=== PATIENT | female | born 1990 | race Hispanic/Latino ===

== ENCOUNTER 2020-10-05 09:48 | Emergency (ER) | payer OTHER ==
--- OUTSIDE RECORDS SUMMARY | 2020-10-05 09:50 | XMS REPORT | Continuity of Care Document ---
:1990 Author Organization [facility] t Address [address] [place] [address] Care Team Providers Name Role Phone Boom SANDOVAL, T Attending Clinician Unavailable Only, Test Attending Clinician Unavailable Doctor Unassigned, Name Attending Clinician Unavailable Problems This patient has no known problems. Allergies, Adverse Reactions, Alerts This patient has no known allergies or adverse reactions. Medications This patient has no known medications. Procedures This patient has no known procedures. Encounters Start End Encounter Admission Attending Care Care Encounter Source Date/Time Date/Time Type Type Clinicians Facility Department ID 2020-04-28 2020-04-28 Letter SAMUEL Nur [id number] 00:00:00 00:00:00 (Out) Dari GOMEZ [id number] [place] [id number] 2020-04-24 2020-04-24 Laboratory Only, [facility] [id number] 11:31:33 11:46:33 Only Test Curry [id number] [place] [id number] 353 2020-04-24 2020-04-24 Orders Doctor BAKER [id number] 00:00:00 00:00:00 Only UnassignedPATRICIA [id number] [place] [id number] Results This patient has no known results.
[2020-10-05 12:13] LABS: Urine Blood Negative (Negative); Urine Glucose Negative (Negative); Urine Protein Negative (Negative)
--- NOTE | 2020-10-05 13:13 | ER ---
Nurse's Notes [facility] Name: Nazanin Trammell Age: 30 yrs Sex: Female : 1990 Arrival Date: 10/05/2020 Time: 09:50 Bed 19 Private MD: Diagnosis: Infectious mononucleosis, unspecified without complication Presentation: 10/05 09:54 Chief complaint: Patient states: fever up to 102.0 * F last night and sore throat. aa5 Denies cough/congestion. 09:54 Coronavirus screen: fever, sore throat, Client presents with at least one sign or aa5 symptom that may indicate coronavirus-19. Standard/surgical mask placed on the client. Provider contacted for isolation considerations. Ebola Screen: Patient negative for fever greater than or equal to 101.5 degrees Fahrenheit, and additional compatible Ebola Virus Disease symptoms. Initial Sepsis Screen: Does the patient meet any 2 criteria? No. Patient's initial sepsis screen is negative. Does the patient have a suspected source of infection? No. Patient's initial sepsis screen is negative. Risk Assessment: Do you want to hurt yourself or someone else? Patient reports no desire to harm self or others. Onset of symptoms was September 2020. 09:54 Method Of Arrival: Ambulatory aa5 09:54 Acuity: ELKIN 4 aa5 Historical: - Allergies: 09:55 No Known Allergies; aa5 - Home Meds: 09:55 None [Active]; aa5 - PMHx: 09:55 None; aa5 - PSHx: 09:55 section; aa5 - Immunization history:: Adult Immunizations up to date. - Social history:: Smoking status: Patient denies any tobacco usage or history of. Screenin:55 Abuse screen: Denies threats or abuse. Nutritional screening: No deficits noted. rb3 Tuberculosis screening: No symptoms or risk factors identified. Fall Risk None identified. Assessment: 09:55 General: Appears in no apparent distress. Behavior is calm, cooperative, Reports fever rb3 for. Pain: Complains of pain in throat Quality of pain is described as sore. Neuro: Level of Consciousness is awake, alert, obeys commands, Oriented to person, place, time, situation. Cardiovascular: Patient's skin is warm and dry. Respiratory: Airway is patent Respiratory effort is even, unlabored, Respiratory pattern is regular, symmetrical. GI: No signs and/or symptoms were reported involving the gastrointestinal system. : No signs and/or symptoms were reported regarding the genitourinary system. EENT: Reports sore throat. 11:00 Reassessment: Patient appears in no apparent distress at this time. No changes from rb3 previously documented assessment. Pt is talking on her phone. 12:00 Reassessment: Patient appears in no apparent distress at this time. Patient and/or rb3 family updated on plan of care and expected duration. Pain level reassessed. Patient is alert, oriented x 3, equal unlabored respirations, skin warm/dry/pink. 13:00 Reassessment: Patient appears in no apparent distress at this time. No changes from rb3 previously documented assessment. 13:40 Reassessment: Patient appears in no apparent distress at this time. Patient and/or rb3 family updated on plan of care and expected duration. Pain level reassessed. Patient is alert, oriented x 3, equal unlabored respirations, skin warm/dry/pink. Vital Signs: 09:54 BP 142 / 86; Pulse 91; Resp 18 S; Temp 98.6(O); Pulse Ox 100% on R/A; aa5 11:00 BP 115 / 70; Pulse 80; Resp 16; Pulse Ox 99% ; rb3 12:00 BP 116 / 81; Pulse 93; Resp 17; Pulse Ox 99% ; rb3 13:00 BP 110 / 66; Pulse 77; Resp 17; Pulse Ox 100% ; rb3 ED Course: 09:50 Patient arrived in ED. as 09:52 Nicole Milan FNP-C [facility] kb 09:52 Eagle Dillon MD is Attending Physician. kb 09:54 Arm band placed on Patient placed in an exam room, on a stretcher. aa5 09:55 Patient has correct armband on for positive identification. Bed in low position. Call rb3 light in reach. Side rails up X 1. Pulse ox on. NIBP on. Warm blanket given. 10:05 Triage completed. aa5 10:07 Marycarmen Carrillo, RN is Primary Nurse. rb3 10:13 Strep Sent. rb3 10:13 Flu Sent. rb3 12:18 [place] Screen Profile Sent. rb3 13:09 Throat Culture Sent. ap3 13:41 No provider procedures requiring assistance completed. Patient did not have IV access rb3 during this emergency room visit. Administered Medications: No medications were administered Outcome: 13:12 Discharge ordered by MD. tran 13:41 Discharged to home ambulatory. rb3 13:41 Condition: stable 13:41 Discharge instructions given to patient, Instructed on discharge instructions, follow up and referral plans. medication usage, Demonstrated understanding of instructions, follow-up care, medications, Prescriptions given X 1. 13:42 Patient left the ED. rb3 Signatures: Nicole Milan, STRIP ROLLER-C STRIP ROLLER-April Baeza Audri, RN RN aa5 Tanisha Rodriguez RN RN ap3 Marycarmen Carrillo, RN RN rb3 Corrections: (The following items were deleted from the chart) 10:36 10:13 CORONAVIRUS+ drawn and sent. rb3 EDMS
--- NOTE | 2020-10-05 13:14 | EDPHYS ---
Physician Documentation [facility] Name: Nazanin Trammell Age: 30 yrs Sex: Female : 1990 Arrival Date: 10/05/2020 Time: 09:50 Bed 19 Private MD: ED Physician Eagle Dillon HPI: 10/05 12:48 This 30 yrs old Female presents to ER via Ambulatory with complaints of Fever, kb chills/body aches. 12:48 The patient or guardian reports flu symptoms, low-grade fever, myalgias, no appetite. kb Onset: The symptoms/episode began/occurred yesterday. Severity of symptoms: At their worst the symptoms were moderate, in the emergency department the symptoms are unchanged. Modifying factors: The symptoms are alleviated by nothing, the symptoms are aggravated by nothing. Associated signs and symptoms: Pertinent positives: fever, sore throat, Pertinent negatives: chest pain, diarrhea, ear ache, nausea, rhinorrhea, vomiting. The patient has not experienced similar symptoms in the past. The patient has not recently seen a physician. Pt reports fever, chills, bodyaches, decreased appetite and sore throat that started yesterday. . Historical: - Allergies: 09:55 No Known Allergies; aa5 - Home Meds: 09:55 None [Active]; aa5 - PMHx: 09:55 None; aa5 - PSHx: 09:55 section; aa5 - Immunization history:: Adult Immunizations up to date. - Social history:: Smoking status: Patient denies any tobacco usage or history of. ROS: 12:47 Respiratory: Negative for shortness of breath, cough, wheezing, and pleuritic chest kb pain. 12:47 Constitutional: Positive for body aches, chills, fatigue, fever, malaise, poor PO intake. 12:47 ENT: Positive for sore throat. 12:47 All other systems are negative. Exam: 12:47 Constitutional: This is a well developed, well nourished patient who is awake, alert, kb and in no acute distress. Head/Face: Normocephalic, atraumatic. ENT: Moist Mucous membranes Neck: Trachea midline, no thyromegaly or masses palpated, and no cervical lymphadenopathy. Supple, full range of motion without nuchal rigidity, or vertebral point tenderness. No Meningismus. Cardiovascular: Regular rate and rhythm with a normal S1 and S2. No gallops, murmurs, or rubs. No pulse deficits. Respiratory: Respirations even and unlabored. No increased work of breathing, no retractions or nasal flaring. Abdomen/GI: Soft, non-tender. No distention Skin: Warm, dry with normal turgor. Normal color. MS/ Extremity: Pulses equal, no cyanosis. Neurovascular intact. Full, normal range of motion. Neuro: Awake and alert, GCS 15, oriented to person, place, time, and situation. Moves all extremities. Normal gait. Psych: Awake, alert, with orientation to person, place and time. Behavior, mood, and affect are within normal limits. Vital Signs: 09:54 BP 142 / 86; Pulse 91; Resp 18 S; Temp 98.6(O); Pulse Ox 100% on R/A; aa5 11:00 BP 115 / 70; Pulse 80; Resp 16; Pulse Ox 99% ; rb3 12:00 BP 116 / 81; Pulse 93; Resp 17; Pulse Ox 99% ; rb3 13:00 BP 110 / 66; Pulse 77; Resp 17; Pulse Ox 100% ; rb3 MDM: 09:54 Patient medically screened. kb 12:46 Data reviewed: vital signs, nurses notes. Data interpreted: Pulse oximetry: on room air kb is 99 %. Interpretation: normal. Counseling: I had a detailed discussion with the patient and/or guardian regarding: the historical points, exam findings, and any diagnostic results supporting the discharge/admit diagnosis, lab results, the need for outpatient follow up, a family practitioner, to return to the emergency department if symptoms worsen or persist or if there are any questions or concerns that arise at home. 10/05 10:00 Order name: Flu; Complete Time: 11:18 kb 10/05 10:00 Order name: Strep; Complete Time: 11:18 kb 10/05 11:08 Order name: Throat Culture [facility] 10/05 11:29 Order name: SARS-COV-2 RT PCR; Complete Time: 11:34 [facility] 10/05 11:58 Order name: [place] Screen Profile; Complete Time: 13:08 kb 10/05 11:59 Order name: Urine Dipstick-Ancillary (obtain specimen); Complete Time: 12:18 kb 10/05 12:13 Order name: Urine Dipstick-Ancillary; Complete Time: 12:24 EDMS 10/05 12:19 Order name: Urine --Ancillary (enter results); Complete Time: 13:01 em1 Administered Medications: No medications were administered Disposition: 16:16 Co-signature as Attending Physician, Eagle Dillon MD I agree with the assessment and tw4 plan of care. Disposition Summary: 10/05/20 13:12 Discharge Ordered Location: Home kb Condition: Stable kb Diagnosis - Infectious mononucleosis, unspecified without complication kb Followup: kb - With: Emergency Department - When: As needed - Reason: Worsening of condition Followup: kb - With: Private Physician - When: 2 - 3 days - Reason: Recheck today's complaints, Continuance of care, Re-evaluation by your physician Discharge Instructions: - Discharge Summary Sheet kb - Infectious Mononucleosis kb - Viral Illness, Adult kb Forms: - Medication Reconciliation Form kb - Work release form kb - Thank You Letter kb - Antibiotic Education kb - Prescription Opioid Use kb Prescriptions: - ondansetron 4 mg Oral tablet,disintegrating - place 1 tablet by TRANSLINGUAL route every 6 hours As needed; 15 tablet; kb Refills: 0, Product Selection Permitted Signatures: Dispatcher [employer] EDNicole Avendaño, JINNY-C REFERRAL SPECIALIST-Gillian Mcgowan, RN RN aa5 Eagle Dillon MD MD tw4 Corrections: (The following items were deleted from the chart) 10:36 10:00 CORONAVIRUS+BRZ ordered. EDCT EDMS
[2020-10-05 13:49] VITALS: TEMP 98.6
[2020-10-05 13:55] VITALS: BP 110/66; O2SAT 100
== END 2020-10-05 13:42 | disposition home or self-care (01) ==
LOC: ER 09:48
DX: B27.90 Infectious mononucleosis, unspecified without complication (principal); Z20.822 Contact with and (suspected) exposure to COVID-19
CPT/HCPCS: 87070; 36415; 86308; 81025; 87081; 81003; 87804 ×2; 99283; U0003

== ENCOUNTER 2020-10-24 22:22 | Emergency (ER) | payer OTHER ==
--- OUTSIDE RECORDS SUMMARY | 2020-10-24 22:25 | XMS REPORT | Continuity of Care Document ---
:1990 [address] [facility] t Address [address] [place] [address] Care Team Providers Name Role Phone Boom [...] Clinicians Facility Department ID 2020-04-28 2020-04-28 Letter SAUMEL Nur [id number] 00:00:00 00:00:00 (Out) Dari GOMEZ [id number] [facility] [id number] 2020-04-24 2020-04-24 Laboratory Only, [facility] [id number] 11:31:33 11:46:33 Only Test Curry [id number] [place] [id number] [place] [id number] 353 2020-04-24 2020-04-24 Orders Doctor BAKER [id number] 00:00:00 00:00:00 Only UnassPATRICIA ramos [id number] [place] [facility] [id number] Results This patient has no known results.
[2020-10-24 23:45] LABS: Urine Blood 3+ (Negative); Urine Glucose Negative (Negative); Urine Protein Negative (Negative); Urine Specific Gravity 1.025 (1.005-1.030)
[2020-10-25 00:03] LABS: Urine Specific Gravity/Preg 1.025 (1.005-1.030)
[2020-10-25] MEDS ORDERED: ACETAMINOPHEN 500 MG TAB ONE (00:47)
--- NOTE | 2020-10-25 00:57 | ER ---
Nurse's Notes [facility] Name: Nazanin Trammell Age: 30 yrs Sex: Female : 1990 Arrival Date: 10/24/2020 Time: 22:24 Bed 26 Private MD: Diagnosis: SARS-associated coronavirus as the cause of diseases classified elsewhere Presentation: 10/24 23:18 Chief complaint: Patient states: Sudden onset of fever and chills today around 1300. vg1 Stated temperature was 100.2. Pt did not take any medication, stated went to bed to take a nap to hopefully break the temperature. Also states headache and "almost fainted when got up from nap.". Coronavirus screen: Client denies travel out of the [place] in the last 14 days. Client presents with at least one sign or symptom that may indicate coronavirus-19. Standard/surgical mask placed on the client. Ebola Screen: Patient negative for fever greater than or equal to 101.5 degrees Fahrenheit, and additional compatible Ebola Virus Disease symptoms. Initial Sepsis Screen: Does the patient meet any 2 criteria? No. Patient's initial sepsis screen is negative. Does the patient have a suspected source of infection? No. Patient's initial sepsis screen is negative. Risk Assessment: Do you want to hurt yourself or someone else? Patient reports no desire to harm self or others. Onset of symptoms was October 24, 2020. 23:18 Method Of Arrival: Ambulatory vg1 23:18 Acuity: ELKIN 3 vg1 Triage Assessment: 23:22 General: Appears in no apparent distress. comfortable, Behavior is calm, cooperative. vg1 Pain: Complains of pain in whole body Quality of pain is described as aching. 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 - Social history:: Smoking status: Patient denies any tobacco usage or history of. Screenin:49 Abuse screen: Denies threats or abuse. Nutritional screening: No deficits noted. ap3 Tuberculosis screening: No symptoms or risk factors identified. Fall Risk None identified. Assessment: 23:48 General: Appears in no apparent distress. comfortable, Behavior is calm, cooperative, ap3 appropriate for age. General: Reports chills for fever for feeling ill for 0-12 hours. Pain: Complains of pain in head. Neuro: Level of Consciousness is awake, alert, obeys commands, Oriented to person, place, time, situation, Appropriate for age Moves all extremities. Gait is steady, Speech is normal. Cardiovascular: Capillary refill < 3 seconds Patient's skin is warm and dry. Respiratory: Airway is patent Respiratory effort is even, unlabored, Respiratory pattern is regular, symmetrical. GI: No signs and/or symptoms were reported involving the gastrointestinal system. : No signs and/or symptoms were reported regarding the genitourinary system. Vital Signs: 23:18 BP 118 / 61; Pulse 83; Resp 18; Temp 98.2(O); Pulse Ox 99% ; Weight 117.93 kg; Height 5 vg1 ft. 2 in. (157.48 cm); Pain 4/10; 10/25 00:56 BP 109 / 72; Pulse 86; Resp 17; Pulse Ox 100% on R/A; ap3 10/24 23:18 Body Mass Index 47.55 (117.93 kg, 157.48 cm) vg1 ED Course: 10/24 22:24 Patient arrived in ED. wm 23:21 Triage completed. vg1 23:22 Arm band placed on Patient placed in waiting room, Patient notified of wait time. vg1 23:24 COVID swab sent to lab. Flu and/or RSV swab sent to lab. Strep swab sent to lab. vg1 completed by [facility]. 23:29 Tanisha Rodriguez, JAIME is Primary Nurse. ap3 23:33 Hector Tidwell PA is PHCP. cp 23:33 Berto Mayes MD is Attending Physician. cp 23:49 Patient has correct armband on for positive identification. Bed in low position. Call ap3 light in reach. Side rails up X 1. Pulse ox on. NIBP on. Door closed. Noise minimized. 10/25 01:05 No provider procedures requiring assistance completed. Patient did not have IV access ap3 during this emergency room visit. Administered Medications: 00:46 Drug: Tylenol 1000 mg Route: PO; ap3 01:06 Follow up: Response: No adverse reaction ap3 Outcome: 00:57 Discharge ordered by . esequiel 01:05 Discharged to home ambulatory. ap3 01:05 Condition: good 01:05 Discharge instructions given to patient, Instructed on discharge instructions, follow up and referral plans. Demonstrated understanding of instructions, follow-up care. 01:06 Patient left the ED. ap3 Signatures: Hector Tidwell PA PA cp Prokisch, Amanda, RN RN ap3 Alena Lara RN RN 1 Pooja Cadena
--- NOTE | 2020-10-25 00:57 | EDPHYS ---
Physician Documentation [facility] Name: Nazanin Trammell Age: 30 yrs Sex: Female : 1990 Arrival Date: 10/24/2020 Time: 22:24 Bed 26 Private MD: ED Physician Berto Mayes HPI: 10/24 23:40 This 30 yrs old Female presents to ER via Ambulatory with complaints of Fever, cp Fainting. 23:40 The patient reports fever, that was measured at 100.2 degrees Fahrenheit. Onset: The cp symptoms/episode began/occurred today. Associated signs and symptoms: Pertinent positives: chills, headache, sore throat. Severity of symptoms: in the emergency department the symptoms are unchanged. 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 - Social history:: Smoking status: Patient denies any tobacco usage or history of. ROS: 23:42 Constitutional: Positive for body aches, Negative for chills, fever, poor PO intake. cp 23:42 Eyes: Negative for injury, pain, redness, and discharge. cp 23:42 ENT: Positive for sore throat, Negative for drainage from ear(s), ear pain, difficulty swallowing, difficulty handling secretions. 23:42 Cardiovascular: Negative for chest pain, palpitations. 23:42 Respiratory: Negative for cough, shortness of breath, wheezing. 23:42 Abdomen/GI: Negative for abdominal pain, nausea, vomiting, and diarrhea. 23:42 Neuro: Positive for headache, Negative for altered mental status, weakness. 23:42 All other systems are negative. Exam: 23:45 Constitutional: The patient appears in no acute distress, alert, awake, non-toxic, well cp developed, well nourished, obese. 23:45 Head/Face: Normocephalic, atraumatic. cp 23:45 Eyes: Periorbital structures: appear normal, Conjunctiva: normal, no exudate, no injection, Lids and lashes: appear normal, bilaterally. 23:45 ENT: External ear(s): are unremarkable, Ear canal(s): are normal, clear, TM's: bulging, is not appreciated, bilaterally, dullness, bilaterally, erythema, is not appreciated, bilaterally, Nose: is normal, Mouth: Lips: moist, Oral mucosa: pink and intact, moist, Posterior pharynx: Airway: no evidence of obstruction, patent, Tonsils: no enlargement, no exudate, Uvula: midline, erythema, that is mild, exudate, is not appreciated, Voice: is normal. 23:45 Neck: ROM/movement: is normal, is supple, no meningismus, no nuchal rigidity. 23:45 Chest/axilla: Inspection: normal. 23:45 Cardiovascular: Rate: normal. 23:45 Respiratory: the patient does not display signs of respiratory distress, Respirations: normal, no use of accessory muscles, no retractions, labored breathing, is not present, Breath sounds: are clear throughout, no decreased breath sounds, no stridor, no wheezing. 23:45 Abdomen/GI: Exam negative for discomfort, distension, guarding, Inspection: abdomen appears normal. 23:45 Neuro: Orientation: to person, place \T\ time. Mentation: is normal, Motor: moves all fours, strength is normal, Gait: is steady. Vital Signs: 23:18 BP 118 / 61; Pulse 83; Resp 18; Temp 98.2(O); Pulse Ox 99% ; Weight 117.93 kg; Height 5 vg1 ft. 2 in. (157.48 cm); Pain 4/10; 10/25 00:56 BP 109 / 72; Pulse 86; Resp 17; Pulse Ox 100% on R/A; ap3 10/24 23:18 Body Mass Index 47.55 (117.93 kg, 157.48 cm) vg1 MDM: 10/24 23:44 Patient medically screened. cp 10/25 00:00 Differential diagnosis: viral Infection, bacterial infection, URI, bronchitis, cp pneumonia UTI, gastroenteritis, meningitis. 00:56 Data reviewed: vital signs, nurses notes, lab test result(s). cp 00:56 Counseling: I had a detailed discussion with the patient and/or guardian regarding: the cp historical points, exam findings, and any diagnostic results supporting the discharge/admit diagnosis, lab results, to return to the emergency department if symptoms worsen or persist or if there are any questions or concerns that arise at home. ED course: VSS. Patient appears non-toxic and no signs of respiratory distress. Will discharge to home for continued monitoring. Patient instructed to quarantine 10 days. 10/24 23:24 Order name: Flu; Complete Time: 00:50 vg1 10/25 00:50 Interpretation: Reviewed. 10/24 23:24 Order name: Strep; Complete Time: 00:50 vg1 10/25 00:50 Interpretation: Reviewed. 10/24 23:45 Order name: Urine --Ancillary (enter results); Complete Time: 00:17 mw2 10/25 00:18 Interpretation: Reviewed. 10/24 23:45 Order name: Urine Dipstick-Ancillary; Complete Time: 23:48 EDIA 10/24 23:49 Interpretation: Normal except: UKET Trace; UBLD 3+. 10/24 23:27 Order name: Urine Dipstick-Ancillary (obtain specimen); Complete Time: 23:44 10/24 23:27 Order name: Urine Test (obtain specimen); Complete Time: 23:44 10/25 00:28 Order name: Throat Culture EDIA 10/25 00:50 Order name: SARS-COV-2 RT PCR; Complete Time: 00:53 EDIA 10/25 00:53 Interpretation: Results reviewed. cp Administered Medications: 00:46 Drug: Tylenol 1000 mg Route: PO; ap3 01:06 Follow up: Response: No adverse reaction ap3 Disposition: 01:18 Co-signature as Attending Physician, Berto Mayes MD. pkl Disposition Summary: 10/25/20 00:57 Discharge Ordered Location: Home cp Problem: new cp Symptoms: have improved cp Condition: Stable cp Diagnosis - SARS-associated coronavirus as the cause of diseases classified elsewhere cp Followup: cp - With: Private Physician - When: 2 - 3 days - Reason: Worsening of condition Discharge Instructions: - Discharge Summary Sheet cp - COVID-19 cp - COVID-19: What Your Test Results Mean - [facility] cp - Things to Know about the COVID-19 Pandemic - [facility] cp - 10 Things You Can Do to Manage Your COVID-19 Symptoms at Home - [facility] cp - Frequently Asked Questions About COVID-19 Vaccination - [facility] cp - COVID-19: Quarantine vs. Isolation - [facility] cp - Prevent the Spread of COVID-19 if You Are Sick - [facility] cp Forms: - Medication Reconciliation Form cp - Thank You Letter cp - Antibiotic Education cp - Prescription Opioid Use cp - Work release form mw2 Signatures: Dispatcher [employer] EDMS Berto Mayes MD MD pkl Hector Tidwell PA PA cp Prokisch, Amanda RN RN ap3 Alena Lara RN RN vg1 Corrections: (The following items were deleted from the chart) 10/24 23:39 23:25 CORONAVIRUS+.BRZ ordered. EDMS EDMS
[2020-10-25 01:24] VITALS: TEMP 98.2
[2020-10-25 01:26] VITALS: BP 109/72; O2SAT 100
== END 2020-10-25 01:06 | disposition home or self-care (01) ==
LOC: ER 22:22
DX: U07.1 COVID-19 (principal)
CPT/HCPCS: 87070; 81025; 87081; 81003; 87804 ×2; 99283; U0003

== ENCOUNTER 2020-11-01 21:35 | Emergency (ER) | payer OTHER ==
--- OUTSIDE RECORDS SUMMARY | 2020-11-01 21:38 | XMS REPORT | Continuity of Care Document ---
:1990 Author Organization [facility] t Address [address] [place] [address] Care Team Providers Name Role Phone Boom [...] ID 2020-04-28 2020-04-28 Letter SAMUEL Nur [id number] 00:00:00 00:00:00 (Out) Dari GOMEZ [id number] [facility] [id number] 2020-04-24 2020-04-24 Laboratory Only, [facility] [id number] 11:31:33 11:46:33 Only Test Curry [id number] [place] [id number] [place] [id number] 2020-04-24 2020-04-24 Orders Doctor BAKER [id number] 00:00:00 00:00:00 Only UnassPATRICIA ramos [id number] [place] [facility] [id number] Results This patient has no known results.
[2020-11-01 23:06] LABS: Urine Blood Trace-intact (Negative); Urine Glucose Negative (Negative); Urine Protein Trace (Negative); Urine Specific Gravity >=1.030 (1.005-1.030)
[2020-11-01 23:25] LABS: Barbiturates NEGATIVE (NEGATIVE); Benzodiazepines NEGATIVE (NEGATIVE); Cocaine NEGATIVE (NEGATIVE); METHAMPHETAM NEGATIVE (NEGATIVE); Methadone NEGATIVE (NEGATIVE); Opiates NEGATIVE (NEGATIVE); Phencyclidine NEGATIVE (NEGATIVE); THC Cannibis NEGATIVE (NEGATIVE)
[2020-11-01 23:29] LABS: Urine Specific Gravity/Preg >1.030 (1.005-1.030)
[2020-11-01 23:55] LABS: Absolute Lymphocytes (CBC) 0.8 K/uL (0.7-4.9); Basophils % 0.4 % (0-1.3); Hematocrit 34.9 % (36.0-45.0); Lymphocytes % 31.2 % (15.3-44.8); MPV 9.3 fL (7.6-11.3); RBC Red Blood Cell Count 5.06 M/uL (3.86-4.86)
[2020-11-02 00:02] LABS: Protime INR 1.29
[2020-11-02 00:16] LABS: ALT/SGPT 143 U/L (12-78); AST/SGOT 62 U/L (15-37); Albumin 3.5 g/dL (3.4-5.0); Alkaline Phosphatase 97 U/L (45-117); BUN Blood Urea Nitrogen 7 mg/dL (7-18); Bicarbonate 26 mmol/L (21-32); Bilirubin Direct 0.1 mg/dL (0-0.2); Bilirubin Total 0.3 mg/dL (0.2-1.0); Glucose Level 111 mg/dL (74-106); Magnesium 1.9 mg/dL (1.8-2.4); NT PRO-BNP 10 pg/mL (<125); Potassium 3.5 mmol/L (3.5-5.1); Protein, Total 7.8 g/dL (6.4-8.2); Sodium Level 142 mmol/L (136-145); Troponin (Emerg Dept Use Only) < 0.02 ng/mL (0.0-0.045)
[2020-11-02 01:31] LABS: Platelet Estimate ADEQ; White Blood Cell Scan OK (OK)
[2020-11-02 01:32] LABS: Anisocytosis 1+; Blood Morphology Comment NOTED (NOT SEEN); Hypochromasia 1+; Macrocytosis 1+; Ovalocytes 1+
--- NOTE | 2020-11-02 02:35 | ER ---
Nurse's Notes [facility] Name: Nazanin Trammell Age: 30 yrs Sex: Female : 1990 Arrival Date: 11/01/2020 Time: 21:37 Bed Waiting Private MD: Diagnosis: Other pneumonia, unspecified organism;SARS-associated coronavirus as the cause of diseases classified elsewhere Presentation: 11/01 22:27 Chief complaint: Patient states: Chest pain x 1 day. Coronavirus screen: Client denies kg travel out of the [place] in the last 14 days. At this time, unable to obtain information related to travel outside the [place] At this time, the client does not indicate any symptoms associated with coronavirus-19. Ebola Screen: Patient negative for fever greater than or equal to 101.5 degrees Fahrenheit, and additional compatible Ebola Virus Disease symptoms Patient denies exposure to infectious person. Patient denies travel to an Ebola-affected area in the 21 days before illness onset. Initial Sepsis Screen: Does the patient meet any 2 criteria? No. Patient's initial sepsis screen is negative. Does the patient have a suspected source of infection? No. Patient's initial sepsis screen is negative. Risk Assessment: Do you want to hurt yourself or someone else? Patient reports no desire to harm self or others. Onset of symptoms was December 01, 2020. 22:27 Method Of Arrival: Ambulatory kg 22:27 Acuity: ELKIN 4 kg Triage Assessment: 22:28 General: Appears in no apparent distress. Behavior is calm, cooperative, appropriate kg for age, quiet. Pain: Complains of pain in Chest pain. Cardiovascular: Reports chest pain, shortness of breath. 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 - Social history:: Smoking status: Patient denies any tobacco usage or history of. Screenin:31 Abuse screen: Denies threats or abuse. Denies injuries from another. Nutritional kg screening: No deficits noted. Tuberculosis screening: No symptoms or risk factors identified. Fall Risk None identified. Vital Signs: 22:27 BP 118 / 74; Pulse 91; Resp 18; Temp 98.2(TE); Pulse Ox 100% on R/A; Weight 124.74 kg kg (R); Height 5 ft. 2 in. (157.48 cm); Pain 6/10; 11/02 03:04 BP 131 / 78; Pulse 75; Resp 18; Temp 98.0(O); Pulse Ox 100% on R/A; oe 11/01 22:27 Body Mass Index 50.30 (124.74 kg, 157.48 cm) kg ED Course: 11/01 21:37 Patient arrived in ED. bp1 22:28 Triage completed. kg 22:28 Arm band placed on right wrist. kg 22:31 Patient has correct armband on for positive identification. kg 22:36 Hector Tidwell PA is PHCP. cp 22:36 Berto Mayes MD is Attending Physician. cp 23:06 XRAY Chest (1 view) In Process Unspecified. EDMS 23:08 UDS Sent. ms4 23:29 Urine --Ancillary (enter results) Sent. ms4 23:30 Inserted saline lock: 22 gauge in left antecubital area, using aseptic technique. Blood oe collected. 23:42 Initial lab(s) drawn, by mt, sent to lab. Urine collected: EKG done, by ED staff, [facility] reviewed by Hector CUMMINGS. 23:43 monitoring specialist on. Pulse ox on. NIBP on. mh5 11/02 02:10 CT Chest For PE Angio In Process Unspecified. EDMS 03:00 No provider procedures requiring assistance completed. IV discontinued, intact, bb bleeding controlled, No redness/swelling at site. Pressure dressing applied. Administered Medications: No medications were administered Outcome: 02:34 Discharge ordered by . cp 03:00 Discharged to home ambulatory. bb 03:00 Condition: stable 03:00 Discharge instructions given to patient, Instructed on discharge instructions, follow up and referral plans. medication usage, Demonstrated understanding of instructions, follow-up care, medications, Prescriptions given X 2. 03:05 Patient left the ED. bb Signatures: Dispatcher [facility]NC Jen Saldivar, RN RN Hector Gilmore PA PA cp Espinosa, Orlando oe Martinez, Maria 5 Olga Barksdale Kristen, RN RN kg Sally Gallagher RN RN ms4
--- NOTE | 2020-11-02 02:35 | EDPHYS ---
Physician Documentation [facility] Name: Nazanin Trammell Age: 30 yrs Sex: Female : 1990 Arrival Date: 11/01/2020 Time: 21:37 Bed Waiting Private MD: ED Physician Berto Mayes HPI: 11/01 22:48 This 30 yrs old Female presents to ER via Ambulatory with complaints of Chest cp Pain. 22:48 Onset: The symptoms/episode began/occurred 1 day(s) ago. cp 22:48 The patient or guardian reports chest pain that is located primarily in the substernal cp area. 22:48 The pain radiates to back. Associated signs and symptoms: Pertinent positives: cough, cp shortness of breath, Pertinent negatives: abdominal pain, lower extremity pain, lower extremity swelling, syncope, vomiting. The chest pain is described as sharp. Severity of pain: in the emergency department the pain is unchanged despite home interventions. 22:50 Patient reports testing positive for COVID-19 on 10-25-2020. 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 - Social history:: Smoking status: Patient denies any tobacco usage or history of. ROS: 22:50 Constitutional: Negative for body aches, chills, fever, poor PO intake. cp 22:50 Eyes: Negative for injury, pain, redness, and discharge. cp 22:50 Cardiovascular: Positive for chest pain, of the mid chest, Negative for edema, palpitations. 22:50 Respiratory: Positive for cough, shortness of breath, on exertion. Negative for wheezing. 22:50 Abdomen/GI: Negative for abdominal pain, nausea, vomiting, and diarrhea. cp 22:50 Back: Positive for pain at rest. cp 22:50 Skin: Negative for rash. 22:50 Neuro: Negative for altered mental status, headache, syncope, weakness. 22:50 All other systems are negative. Exam: 22:45 ECG was reviewed by the Attending Physician. cp 22:55 Constitutional: The patient appears in no acute distress, alert, awake, non-toxic, well cp developed, well nourished, obese. 22:55 Head/Face: Normocephalic, atraumatic. cp 22:55 Eyes: Periorbital structures: appear normal, Conjunctiva: normal, no exudate, no injection, Sclera: no appreciated abnormality, Lids and lashes: appear normal, bilaterally. 22:55 ENT: External ear(s): are unremarkable, Ear canal(s): are normal, clear, TM's: dullness, bilaterally, Nose: is normal, Mouth: Lips: moist, Oral mucosa: moist, Posterior pharynx: Airway: no evidence of obstruction, patent, Tonsils: are normal in appearance. 22:55 Neck: ROM/movement: is normal, is supple, without pain, no meningismus, no nuchal rigidity, Lymph nodes: no appreciated lymphadenopathy. 22:55 Chest/axilla: Inspection: normal, Palpation: crepitus, is not appreciated, tenderness, that is mild, of the mid-sternal area. 22:55 Cardiovascular: Rate: normal, Rhythm: regular, Heart sounds: murmur, not appreciated, Edema: is not appreciated, JVD: is not appreciated. 22:55 Respiratory: the patient does not display signs of respiratory distress, Respirations: normal, no use of accessory muscles, no retractions, labored breathing, is not present, Breath sounds: bronchial sounds, that are mild, are heard diffusely, stridor, is not appreciated, wheezing: is not appreciated. 22:55 Abdomen/GI: Inspection: abdomen appears normal, Palpation: abdomen is soft and non-tender, in all quadrants. 22:55 Back: pain, that is mild, of the left subscapular area and right subscapular area, ROM is normal. 22:55 Skin: no rash present. 22:55 Neuro: Orientation: to person, place \T\ time. Mentation: is normal, Motor: moves all fours, strength is normal, Gait: is steady, at a normal pace, without difficulty. Vital Signs: 22:27 BP 118 / 74; Pulse 91; Resp 18; Temp 98.2(TE); Pulse Ox 100% on R/A; Weight 124.74 kg kg (R); Height 5 ft. 2 in. (157.48 cm); Pain 6/10; 11/02 03:04 BP 131 / 78; Pulse 75; Resp 18; Temp 98.0(O); Pulse Ox 100% on R/A; oe 11/01 22:27 Body Mass Index 50.30 (124.74 kg, 157.48 cm) kg MDM: 11/01 22:41 Patient medically screened. cp 11/02 02:32 Data reviewed: vital signs, nurses notes, lab test result(s), EKG, radiologic studies, cp CT scan, plain films, and as a result, I will discharge patient. Test interpretation: by ED physician or midlevel provider: ECG, plain radiologic studies. Response to treatment: the patient's symptoms have markedly improved after treatment, and as a result, I will discharge patient. 11/01 22:42 Order name: Basic Metabolic Panel cp 11/01 22:42 Order name: CBC with Diff cp 11/01 22:42 Order name: LFT's cp 11/01 22:42 Order name: Magnesium cp 11/01 22:42 Order name: NT PRO-BNP cp 11/01 22:42 Order name: PT-INR; Complete Time: 00:24 cp 11/02 00:27 Interpretation: PT 14.9; Reviewed. cp 11/01 22:42 Order name: Troponin (emerg Dept Use Only); Complete Time: 00:24 cp 11/01 22:42 Order name: UDS; Complete Time: 00:04 cp 11/02 00:04 Interpretation: Reviewed. cp 11/01 22:43 Order name: Basic Metabolic Panel; Complete Time: 00:24 EDMS 08 02:01 Interpretation: Normal except: CL 108; GLUC 111; CA 8.0. cp 11/01 22:43 Order name: CBC with Automated Diff; Complete Time: 02:01 EDMS 08 00:04 Interpretation: Normal except: WBC 2.50; RBC 5.06; HGB 11.0; HCT 34.9; MCV 69.0; MCH cp 21.7; MCHC 31.4; PLT 140; RDW 16.3; NEUT A 1.5. 11/01 22:43 Order name: Liver (Hepatic) Function; Complete Time: 00:24 EDMS 11/01 22:43 Order name: Magnesium; Complete Time: 00:24 EDMS 11/01 22:43 Order name: NT PRO-BNP; Complete Time: 00:24 EDMS 11/01 23:06 Order name: Urine Dipstick-Ancillary; Complete Time: 00:04 EDMS 11/01 21:39 Order name: EKG; Complete Time: 21:39 cp 11/01 21:39 Order name: EKG - Nurse/Tech; Complete Time: 23:29 cp 11/01 22:42 Order name: XRAY Chest (1 view) cp 11/01 22:42 Order name: Cardiac monitoring 11/01 22:42 Order name: IV Saline Lock 11/01 22:42 Order name: Labs collected and sent 11/01 22:42 Order name: O2 Per Protocol 11/01 23:09 Order name: Urine --Ancillary (enter results) ms4 11/01 23:09 Order name: Urine --Ancillary; Complete Time: 00:04 EDMS 11/02 00:01 Order name: CBC Smear Scan; Complete Time: 02:01 EDMS 11/02 01:11 Order name: CT Chest For PE Angio cp 11/02 02:03 Order name: LAB Add On 11/02 02:04 Order name: D-Dimer; Complete Time: 02:37 EDMS 11/02 02:37 Interpretation: Abnormal: D-DIMER 603. cp 11/01 22:42 Order name: O2 Sat Monitoring 11/01 22:42 Order name: Urine Dipstick-Ancillary (obtain specimen); Complete Time: 23:06 cp 11/01 22:42 Order name: Urine Test (obtain specimen); Complete Time: 23:06 cp EC/07 22:45 Rate is 76 beats/min. Rhythm is regular. DC interval is normal. QRS interval is cp prolonged at 104 msec. QT interval is normal. T waves are Inverted in lead aVR. Interpreted by me. Reviewed by me. Administered Medications: No medications were administered Disposition: 11/02 03:23 Co-signature as Attending Physician, Berto Mayes MD. pkl Disposition Summary: 11/02/20 02:34 Discharge Ordered Location: Home cp Problem: new cp Symptoms: have improved cp Condition: Stable cp Diagnosis - Other pneumonia, unspecified organism cp - SARS-associated coronavirus as the cause of diseases classified elsewhere cp Followup: cp - With: Private Physician - When: 2 - 3 days - Reason: Worsening of condition Discharge Instructions: - Discharge Summary Sheet cp - COVID-19 cp - Things to Know about the COVID-19 Pandemic - [facility] cp - 10 Things You Can Do to Manage Your COVID-19 Symptoms at Home - [facility] cp - COVID-19: Quarantine vs. Isolation - [facility] cp - Prevent the Spread of COVID-19 if You Are Sick - [facility] cp Forms: - Medication Reconciliation Form cp - Thank You Letter cp - Antibiotic Education cp - Prescription Opioid Use cp - Work release form bb Prescriptions: - Zithromax Z-Sebastian 250 mg Oral Tablet - take 1 tablet by ORAL route as directed for 5 days Day 1 - take two (2) tablets cp one time. Day 2, 3, 4 , 5 take one (1) tablet once daily.; 6 tablet; Refills: 0, Product Selection Permitted - Prednisone 20 mg Oral Tablet - take 2 tablets by ORAL route once daily for 5 days then 1 tablet daily for 5 cp days; 15 tablet; Refills: 0, Product Selection Permitted Signatures: Dispatcher [employer] Berto Berkowitz MD MD pkl Page, Corey, PA PA cp Jo Stewart, RN RN kg
[2020-11-02 03:20] VITALS: O2SAT 100
[2020-11-02 03:22] VITALS: BP 131/78; TEMP 98
--- NOTE | 2020-11-02 08:01 | EKG ---
Test Date: 2020-11-01 Test Time: 22:40:16 Material Expediter: KELLY MEASUREMENT RESULTS: Intervals: Rate: 76 IN: 166 QRSD: 104 QT: 358 QTc: 402 [place]: P: 35 IN: 166 QRS: 36 T: 25 INTERPRETIVE STATEMENTS: Normal sinus rhythm Normal ECG No previous ECG available for comparison Electronically Signed On 11-02-20 08:00:15 CDT by Donny Bernardo
--- NOTE | 2020-11-02 08:37 | RAD REPORT ---
EXAM DESCRIPTION: RAD - Chest Single View - 11/01/2020 11:06 pm CLINICAL HISTORY: CHEST PAIN COMPARISON: Chest For Pe Angio dated 11/02/2020 FINDINGS: Consolidative process in the right upper lobe. Cardiomegaly.No acute osseous abnormality. No significant pleural effusions or pneumothorax. IMPRESSION: Consolidative airspace disease in the right upper lobe concerning for pneumonia. Referen ce subsequent chest CT.
--- NOTE | 2020-11-03 12:14 | RAD REPORT ---
EXAM DESCRIPTION: CT - Chest For Pe Angio - 11/02/2020 7:08 am CLINICAL HISTORY: 30 years, Female, CHEST PAIN COMPARISON: None. TECHNIQUE: Multiple transaxial tomograms of the chest were obtained from the lung apices through the lung bases utilizing 3 mm slice thickness at 3 mm interval reconstruction after the administration o f large bolus of IV contrast for complete opacification of the pulmonary arteries. Subsequent maximum intensity projection images were generated in the coronal and sagittal plane for r eview. This exam was performed according to our departmental dose-optimization protocol, which includes auto mated exposure control, adjustment of the mA and/or kV according to patient size and/or use of iterat xavi reconstruction technique. FINDINGS: The lungs parenchyma demonstrate the presence of minimal bilateral lower lobe peripheral g roundglass opacities within both lungs. No significant masses, and/or consolidations are identified. The trachea mainstem bronchus demonstrate to be normal. There is no significant pericardial or pleura l effusions. The thoracic aorta demonstrate to be unremarkable. There is no evidence for thoracic aortic dissectio n and/or significant aneurysm. The heart is normal in size. No evidence for right ventricular strain. There are no coronary artery calcific lesions. There is no significant mediastinal and/or hilar lymphadenopathy. The axillary regions demonstrate to be clear. Pulmonary arteries demonstrate to be normal, no intraluminal defect are seen that would suggest pulmo nary embolus. The bone windows demonstrate no significant skeletal lesions. The visualized portions of the upper abdomen demonstrate small to moderate size hiatal hernia otherwi se no significant abnormalities. IMPRESSION: No evidence for pulmonary embolism and/or thoracic aortic dissection. Commonly reported imaging features of COVID-19 pneumonia are present. Other processes such as influen za pneumonia and organizing pneumonia, as can be seen with drug toxicity and connective tissue diseas e, can cause a similar imaging pattern. (Reference: https://pubs.rsna.org/doi/full/10.1148/ryct.53491 56594). Small to moderate size hiatal hernia. Electronically signed by: Enrique Durham MD 11/02/2020 2:20 AM CDT Due to temporary technical issues with the PACS/Fluency reporting system, reports are being signed by the in house radiologist without review as a courtesy to ensure prompt reporting. The interpreting r adiologist is fully responsible for the content of the report.
== END 2020-11-02 03:05 | disposition home or self-care (01) ==
LOC: ER 21:35
DX: U07.1 COVID-19 (principal); J18.8 Other pneumonia, unspecified organism
CPT/HCPCS: 93005; 85025; 80048; 36415 ×2; 83735; 81025; 85610; 85379; 80076; 81003; 84484; 83880; 80307; 71275; 71045; 99284; Q9967

== ENCOUNTER 2020-12-28 00:14 | Emergency (ER) | payer OTHER ==
[2020-12-28] MEDS ORDERED: METOCLOPRAMIDE 10 MG/2mL INJ ONE (02:09)
[2020-12-28] MEDS ORDERED: dexAMETHasone 10 MG/ML VIAL ONE (02:10)
[2020-12-28] MEDS ORDERED: ONDANSETRON 4 MG/2 ML VIAL ONE (02:10)
[2020-12-28] MEDS ORDERED: DIPHENHYDRAMINE 50 MG/ML VIAL ONE (02:10)
[2020-12-28] MEDS ORDERED: NA CHLORIDE 0.9% 1,000 ML ONE (02:11)
--- NOTE | 2020-12-28 02:27 | ER ---
Nurse's Notes [facility] Name: Nazanin Trammell Age: 30 yrs Sex: Female : 1990 Arrival Date: 12/28/2020 Time: 00:17 Bed 12 Private MD: Diagnosis: Headache;Adverse effect of other viral vaccines, initial encounter Presentation: 12/28 00:26 Acuity: ELKIN 4 lp1 00:26 Chief complaint: Patient states: Received 2nd dose of Pfizer vaccine yesterday lp1 afternoon, reports headache and fever of 100.1 that began yesterday evening and continued today; last took Ibuprofen 800mg PO at 2130 today. 00:26 Coronavirus screen: headache. Ebola Screen: No symptoms or risks identified at this lp1 time. Initial Sepsis Screen: Does the patient meet any 2 criteria? No. Patient's initial sepsis screen is negative. Does the patient have a suspected source of infection? No. Patient's initial sepsis screen is negative. Risk Assessment: Do you want to hurt yourself or someone else? Patient reports no desire to harm self or others. Onset of symptoms was December 28, 2020. 00:26 Method Of Arrival: Ambulatory lp1 Triage Assessment: 00:48 General: Appears obese, well groomed, well developed. 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 - Social history:: Smoking status: Patient denies any tobacco usage or history of. Screenin:46 Abuse screen: Denies threats or abuse. Denies injuries from another. Nutritional lp1 screening: No deficits noted. Tuberculosis screening: No symptoms or risk factors identified. Fall Risk None identified. Assessment: 00:49 Reassessment: Patient appears in no apparent distress at this time. No changes from wr previously documented assessment. Pain: Denies pain. Vital Signs: 00:26 BP 137 / 91; Pulse 91; Resp 18; Temp 98.6(O); Pulse Ox 99% on R/A; Weight 122.47 kg lp1 (R); Height 5 ft. 2 in. (157.48 cm); 00:51 BP 131 / 91; Pulse 91; Resp 18; Temp 98.6; Pulse Ox 99% ; Weight 55.66 kg; Height 5 ft. wr 2 in. (157.48 cm); 02:44 BP 112 / 59; Pulse 89; Resp 20; Temp 98.3; Pulse Ox 99% ; Pain 5/10; wr 00:51 Body Mass Index 22.44 (55.66 kg, 157.48 cm) wr ED Course: 00:17 Patient arrived in ED. bp1 00:26 Triage completed. lp1 00:31 Hector Tidwell PA is PHCP. cp 00:31 Antonio Mcgraw MD is Attending Physician. cp 00:45 Arm band placed on. lp1 03:29 Antonio Mcgraw MD is Referral Physician. wr Administered Medications: 02:30 Not Given (Patient Refused): Benadryl (diphenhydrAMINE) 25 mg IVP once wr 02:30 Not Given (Patient Refused): Dexamethasone 10 mg IVP once; (not to exceed 40 mg) wr 02:31 Not Given (Patient Refused): NS 0.9% 1000 ml IV at 1 bolus Per protocol; 1000 mL bolus wr 02:31 Not Given (Patient Refused): Reglan (metoCLOPramide) 10 mg IVP once; over 1 to 2 minuteswr 02:31 Not Given (Patient Refused): Zofran (Ondansetron) 4 mg IVP once; over 2 minutes wr 02:45 Drug: Ketorolac 60 mg Route: IM; Site: left deltoid; wr Outcome: 02:27 Discharge ordered by . cp 03:30 Patient left the ED. wr Signatures: Clarita Buchanan RN RN lp1 Hector Tidwell PA PA cp Paniauga, Brittany bp1 Gamba, Liam, RN wg Robinson, Willena Corrections: (The following items were deleted from the chart) 02:49 02:45 Ilia Guevara RN is Primary Nurse. tim dumont
--- NOTE | 2020-12-28 02:27 | EDPHYS ---
Physician Documentation [facility] Name: Nazanin Trammell Age: 30 yrs Sex: Female : 1990 Arrival Date: 12/28/2020 Time: 00:17 Bed 12 Private MD: ED Physician Antonio Mcgraw HPI: 12/28 01:05 This 30 yrs old Female presents to ER via Ambulatory with complaints of Fever, cp Cough. 01:05 The patient reports fever, that was measured at 100.1 degrees Fahrenheit. Onset: The cp symptoms/episode began/occurred yesterday. 01:05 Associated signs and symptoms: Pertinent positives: cough, body aches. cp 01:05 Patient reports receiving second dose for vaccination against COVID-19 yesterday. 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 - Social history:: Smoking status: Patient denies any tobacco usage or history of. ROS: 01:10 Constitutional: Positive for body aches, Negative for fever. cp 01:10 Eyes: Negative for injury, pain, redness, and discharge. cp 01:10 Respiratory: Positive for cough. 01:10 Abdomen/GI: Negative for abdominal pain, nausea, vomiting, and diarrhea, constipation. 01:10 Neuro: Positive for headache, Negative for altered mental status, weakness. Exam: 01:15 Constitutional: The patient appears in no acute distress, alert, awake, non-toxic, well cp developed, well nourished, obese. 01:15 Head/Face: Normocephalic, atraumatic. cp 01:15 Eyes: Periorbital structures: appear normal, Pupils: equal, round, and reactive to light and accomodation, Extraocular movements: intact throughout, Conjunctiva: normal, no exudate, no injection, Sclera: no appreciated abnormality, Lids and lashes: appear normal, bilaterally. 01:15 ENT: External ear(s): are unremarkable, Ear canal(s): are normal, clear, TM's: dullness, bilaterally, Nose: is normal, Mouth: Lips: moist, Oral mucosa: pink and intact, moist, Posterior pharynx: Airway: no evidence of obstruction, patent, Tonsils: are normal in appearance, Uvula: midline, erythema, is not appreciated, exudate, is not appreciated. 01:15 Neck: ROM/movement: is normal, is supple, without pain, no range of motions limitations, no meningismus. 01:15 Chest/axilla: Inspection: normal. 01:15 Cardiovascular: Rate: normal, Rhythm: regular. 01:15 Respiratory: the patient does not display signs of respiratory distress, Respirations: normal, no use of accessory muscles, no retractions, labored breathing, is not present, Breath sounds: are clear throughout, no decreased breath sounds, no stridor, no wheezing. 01:15 Abdomen/GI: Exam negative for discomfort, distension, guarding, Inspection: abdomen appears normal. 01:15 Skin: no rash present. 01:15 Neuro: Orientation: to person, place \T\ time. Mentation: is normal, Cerebellar function: is grossly normal, Motor: moves all fours, strength is normal, Sensation: is normal. Vital Signs: 00:26 BP 137 / 91; Pulse 91; Resp 18; Temp 98.6(O); Pulse Ox 99% on R/A; Weight 122.47 kg lp1 (R); Height 5 ft. 2 in. (157.48 cm); 00:51 BP 131 / 91; Pulse 91; Resp 18; Temp 98.6; Pulse Ox 99% ; Weight 55.66 kg; Height 5 ft. wr 2 in. (157.48 cm); 02:44 BP 112 / 59; Pulse 89; Resp 20; Temp 98.3; Pulse Ox 99% ; Pain 5/10; wr 00:51 Body Mass Index 22.44 (55.66 kg, 157.48 cm) wr MDM: 00:35 Patient medically screened. cp 01:00 Differential diagnosis: meningitis, vaccination reaction, COVID-19. cp 02:25 Data reviewed: vital signs, nurses notes. cp 02:25 Counseling: I had a detailed discussion with the patient and/or guardian regarding: the cp historical points, exam findings, and any diagnostic results supporting the discharge/admit diagnosis, to return to the emergency department if symptoms worsen or persist or if there are any questions or concerns that arise at home. ED course: VSS. Patient declined IV and IV meds at this time. Reassurance that symptoms most likely side effects of vaccination. Recommend symptomatic treatment, rest and continued monitoring. Administered Medications: 02:30 Not Given (Patient Refused): Benadryl (diphenhydrAMINE) 25 mg IVP once wr 02:30 Not Given (Patient Refused): Dexamethasone 10 mg IVP once; (not to exceed 40 mg) wr 02:31 Not Given (Patient Refused): NS 0.9% 1000 ml IV at 1 bolus Per protocol; 1000 mL bolus wr 02:31 Not Given (Patient Refused): Reglan (metoCLOPramide) 10 mg IVP once; over 1 to 2 minuteswr 02:31 Not Given (Patient Refused): Zofran (Ondansetron) 4 mg IVP once; over 2 minutes wr 02:45 Drug: Ketorolac 60 mg Route: IM; Site: left deltoid; wr Disposition: 07:06 Co-signature as Attending Physician, Antonio Mcgraw MD. [email or web address] Disposition Summary: 12/28/20 02:27 Discharge Ordered Location: Home cp Problem: new cp Symptoms: have improved cp Condition: Stable cp Diagnosis - Headache cp - Adverse effect of other viral vaccines, initial encounter cp Followup: cp - With: Private Physician - When: 1 - 2 days - Reason: Worsening of condition Followup: wr - With: Emergency Department - When: As needed - Reason: Followup: wr - With: Antonio Mcgraw MD - When: 2 - 3 days - Reason: Discharge Instructions: - Discharge Summary Sheet cp - Migraine Headache cp - Altitude Sickness wr - Form - Excuse from Work, School, or Physical Activity wr Forms: - Medication Reconciliation Form cp - Thank You Letter cp - Antibiotic Education cp - Prescription Opioid Use cp Prescriptions: - Ibuprofen 800 mg Oral Tablet - take 1 tablet by ORAL route every 8 hours As needed take with food; 30 tablet; cp Refills: 0, Product Selection Permitted - Zofran 4 mg Oral Tablet - take 1 tablet by ORAL route every 12 hours As needed; 20 tablet; Refills: 0, cp Product Selection Permitted Signatures: Clarita Buchanan RN RN lp1 Hector Tidwell PA PA cp Antonio Mcgraw MD MD mh7 Cynthia Almanza Corrections: (The following items were deleted from the chart) 02: 00:58 IV Saline Lock ordered. cp wr : 00:58 Urine Dipstick-Ancillary ordered. cp wr : 00:58 Urine Test ordered. cp 12/29 00:00 12/28 23:59 Constitutional: Negative for cp cp
[2020-12-28] MEDS ORDERED: KETOROLAC 30 MG/ML INJ ONE (03:01)
[2020-12-28 03:45] VITALS: O2SAT 99
[2020-12-28 03:47] VITALS: BP 112/59; TEMP 98.3
== END 2020-12-28 03:30 | disposition home or self-care (01) ==
LOC: ER 00:14
DX: R51.9 Headache, unspecified (principal); T50.B95A Adverse effect of other viral vaccines, initial encounter
CPT/HCPCS: 96372; 99283; J7030; J1100; J1200; J2405; J2765

== ENCOUNTER 2021-12-27 13:37 | Emergency (ER) | payer OTHER ==
--- OUTSIDE RECORDS SUMMARY | 2021-12-27 13:40 | XMS REPORT | Continuity of Care Document ---
:1990 Author Organization [facility] t Address [address] [place] [address] Care Team Providers Name Role Phone AMY FERREIRA TAMERA Primary Care Physician Unavailable Jhon Amy Asael Attending Clinician Unavailable Fiona Leija MA Attending Clinician Unavailable HEMA CUBA Attending Clinician Unavailable Danika Mejia MA Attending Clinician Unavailable Gurjit Beatty MD Attending Clinician [phone] Lab, Adc Fam Pob I Attending Clinician Unavailable Unknown, Attending Attending Clinician Unavailable UNKNOWN, ATTENDING Attending Clinician Unavailable Olga Giron Attending Clinician OLGA CALERO Attending Clinician Unavailable MONET LUA Attending Clinician Unavailable Dari Nur RN Attending Clinician Unavailable Only, Adc Test Attending Clinician Unavailable Baylee Johnson MD Attending Clinician BAYLEE JOHNSON Attending Clinician Unavailable Doctor Unassigned, B And E Attending Clinician Unavailable Payers Payer Name Policy Type Policy Number Effective Date Expiration Date [facility] [id number] 2020 [facility] MEDICAID 00:00:00 Problems Condition Condition Condition Status Onset Resolution Last Treating Co mments Source Name Details Category Date Date Treatment Clinician Date Pruritic Pruritic Disease Active 2014-03 Unive rs rash rash 2-18 ity of 00:[place]: [place] 00 [facility] Pain Pain Disease Active 2014-03 Univers pelvic pelvic 2-08 ity of 00:00: [place] 00 [facility] Multiparit Multiparit Disease Active 2014-03 U nivers y y 04-25 ity of 00:00: [place] 00 [facility] Asthma Asthma Disease Active 2014-03 Univers 04-25 ity of 00:00: [place] 00 [facility] High-risk High-risk Disease Active 2014-03 Uni vers 04-25 ity of 00:00: [place] 00 [facility] Previous Previous Disease Active Overview: Un vera 12-03 Formattin ity of delivery, delivery, 00:00: [place] of [place] antepartum antepartum 00 note Me dical condition condition might be Br anch or or different complicati complicati from the on on original. Record review from c/s primary low transvers e x 2 Obesity Obesity Disease Active Overview: Univ ers complicati complicati 12-03 Formattin ity of ng ng 00:00: g of this [place] , , 00 note Me dical childbirth childbirth might be Branch , or , or different puerperium puerperium from the , , original. antepartum antepartum ICD10 Diagnosis Term Apparel Cutter Utility Allergies, Adverse Reactions, Alerts Allergy Allergy Status Severity Reaction(s) Onset Inactive Treating Comm ents Source Name Type Date Date Clinician NO KNOWN Allergy Active [facility] NO KNOWN Drug Active [facility] ALLERGIE Class ity of S [facility] Social History Social Habit Start Date Stop Date Quantity Comments Source Exposure to Yes [facility] SARS-CoV-2 (event) Medica l Branch Tobacco use and 2021-04-22 2021-04-[address] [facility] [place] exposure 00:00:00 00:00:00 [facility] Alcohol intake 2018-08-27 2018-08-27 [facility] 00:00:00 00:00:00 [facility] Sex Assigned At [address] [facility] [address] [place] 00:00:00 00:00:00 [facility] Smoking Status Start Date Stop Date Source Never smoker [facility] Medications Ordered Filled Start Stop Current Ordering Indication Dosage Frequency Signature Comments Components Source Medication Medication Date Date Medication? Clinician (SIG) Name Name omeprazole Yes 40mg QD Take [address] (PriLOSEC) 1-26 by [facility] 40 MG 10:06: daily. Medical capsule 26 Center albuterol Yes 1{puff} Inhale [address] HFA 1-26 puff by [facility] (VENTOLIN 10:06: mouth via Med ical HFA) 90 26 inhaler Center mcg/actuati every 6 on inhaler (six) hours as needed for Wheezing. omeprazole Yes 40mg QD Take [address] (PriLOSEC) 1-26 by mouth [facility] 40 MG 10:06: daily. Medical capsule 26 Center albuterol Yes 1{puff} Inhale [address] HFA 1-26 puff by [facility] (VENTOLIN 10:06: mouth via Med ical HFA) 90 26 inhaler Center mcg/actuati every 6 on inhaler (six) hours as needed for Wheezing. neomycin-po Yes 4[drp] Place 4 U nivers lymyxin-hyd 8-23 Drops in ity of rocortisone 00:00: right ear [place] (CORTISPORI 00 4 (four) Medi aicha N OTIC times Branch SUSPENSION) daily. 3.5-10,000- 1 mg/mL-unit/ mL-% otic susp neomycin-po Yes 4[drp] Place 4 U nivers lymyxin-hyd 8-23 Drops in ity of rocortisone 00:00: right ear [place] (CORTISPORI 00 4 (four) Medi aicha N OTIC times Branch SUSPENSION) daily. 3.5-10,000- 1 mg/mL-unit/ mL-% otic susp neomycin-po 2015- Yes 4[drp] Place 4 U nivers lymyxin-hyd 8-23 Drops in ity of rocortisone 00:00: right ear [place] (CORTISPORI 00 4 (four) Medi aicha N OTIC times Branch SUSPENSION) daily. 3.5-10,000- 1 mg/mL-unit/ mL-% otic susp neomycin-po 2015- Yes 4[drp] Place 4 U nivers lymyxin-hyd 8-23 Drops in ity of rocortisone 00:00: right ear [place] (CORTISPORI 00 4 (four) Medi aicha N OTIC times Branch SUSPENSION) daily. 3.5-10,000- 1 mg/mL-unit/ mL-% otic susp neomycin-po 2016-0 Yes 4[drp] Place 4 U nivers lymyxin-hyd 8-23 Drops in ity of rocortisone 00:00: right ear [place] (CORTISPORI 00 4 (four) Medi aicha N OTIC times Branch SUSPENSION) daily. 3.5-10,000- 1 mg/mL-unit/ mL-% otic susp Immunizations Ordered Filled Immunization Date Status Comments Sour e Immunization Name Name Td 2012-08-02 Completed University of 00:00:00 [facility] Td 2012-08-02 Completed University of 00:00:00 [facility] 2012-08-02 Completed University of 00:00:00 [facility] 2012-08-02 Completed University of 00:00:00 [facility] 2012-08-02 Completed University 00:00:00 [facility] Vital Signs Vital Name Observation Time Observation Value Comments Source HEIGHT 2021-04-22 10:05:00 157.5 cm WEIGHT 2021-04-22 10:05:00 129.094 kg HEIGHT 2021-04-22 10:05:00 157.5 cm WEIGHT 2021-04-22 10:05:00 129.094 kg Systolic blood 2021-04-22 10:05:00 107 mm[Hg] [facility] Diastolic blood 2021-04-22 10:05:00 60 mm[Hg] [facility] Heart rate 2021-04-22 10:05:00 72 /min [facility] Body temperature 2021-04-22 10:05:00 36.17 Sue [facility] Body height 2021-04-22 10:05:00 157.5 cm [facility] Body weight 2021-04-22 10:05:00 129.094 kg [facility] BMI 2021-04-22 10:05:00 52.05 kg/m2 [facility] Procedures Procedure Date / Time Performed Performing Clinician Sour e CONSENT/REFUSAL FOR 2020-04-24 17:29:33 Doctor Unassigned, No [facility] DIAGNOSIS AND Name Medical Branch TREATMENT ASSIGNMENT OF BENEFITS 2020-04-24 17:29:19 Doctor Unassigned, No [facility] Name Medical Branch Plan of Care Planned Activity Planned Date Details Comments Source Future Scheduled 2021-11-[address] [facility] 00:00:00 (#1) [code = Medical Center INFLUENZA VACCINE (#1)] Future Scheduled 2021-03-[address] [facility] Test 00:00:00 (12+) [code = Medical Center DEPRESSION SCREENING (12+)] Future Scheduled 2021-03-[address] [facility] Test 00:00:00 (12+) [code = Medical Center DEPRESSION SCREENING (12+)] Future Scheduled 2020-11-[address] [facility] Test 00:00:00 (#1) [code = Medical Center INFLUENZA VACCINE (#1)] Future Scheduled [address] [facility] 00:[facility]:00 malignant neoplasm of Medica l Center cervix (procedure) [code = 016351404] Future Scheduled [address] [facility] 00:00:00 malignant neoplasm of Medica l Center cervix (procedure) [code = 990387204] Future Scheduled [address] [facility] 00:00:00 (procedure) [code = Medical Center [id number]] Future Scheduled [address] [facility] Test 00:00:00 (procedure) [code = Medical Center [id number]] Future Scheduled 2011 DTAP/TDAP/TD VACCINES [facility] 00:00:00 (1 - Tdap) [code = Medical C enter DTAP/TDAP/TD VACCINES (1 - Tdap)] Future Scheduled 2011 DTAP/TDAP/TD VACCINES [facility] 00:00:00 (1 - Tdap) [code = Medical C enter DTAP/TDAP/TD VACCINES (1 - Tdap)] Future Scheduled 2010 HEPATITIS C [facility]CRE[facility]ING [facility] 00:00:00 [code = HEPATITIS C Medical Center SCREENING] Future Scheduled 2010 HEPATITIS C [facility] 00:00:00 [code = HEPATITIS C Medical Center SCREENING] Future Scheduled 1997 COVID-19 VACCINE (1) [facility] Test 00:00:00 [code = COVID-[address] VACCINE (1)] Future Scheduled 1990 COVID-19 VACCINE (#1) [facility] 00:00:00 [code = COVID-[address] VACCINE (#1)] Encounters Start End Encounter Admission Attending Care Care Encounter Source Date/Time Date/Time Type Type Clinicians Facility Department ID 2021-12-16 Outpatient Ferreira, STLMLC STLMLC [id number] Common 13:29:00 Amy 94623 [facility] 2021-12-02 Outpatient Ferreira, STLMLC STLC [id number] Common 14:34:00 Amy [id number] [facility] 2021-04-22 Outpatient Ferreira, STLMLC STLC [id number] Common 14:02:17 Amy [id number] [facility] 2021-04-22 Outpatient Ferreira, STLMLC STLC [id number] Common 13:50:56 Amy [id number] [facility] 2021-04-22 Outpatient Ferreira, STLMLC STLC [id number] Common 12:48:57 Amy [id number] [facility] 2021-04-22 Outpatient Ferreira, STLMLC STLMLC [id number] Common 12:30:16 Amy [id number] [facility] 2021-04-22 Outpatient Ferreira, STLMLC STLMLC [id number] Common 12:28:29 Amy [id number] [facility] 2021-04-22 Outpatient Ferreira, STLMLC STLMLC [id number] Common 12:27:57 Amy [id number] [facility] 2021-04-22 Outpatient Ferreira, STLMLC STLC [id number] Common 12:27:09 Amy [id number] [facility] 2021-04-22 Outpatient Ferreira, STLMLC STLC [id number] Common 12:08:05 Amy 27595 [facility] 2021-04-22 Outpatient Ferreira, STLMLC [facility] [id number] Common 12:07:40 [facility] 73712 [facility] 2021-04-22 Outpatient Ferreira, STLMLC [facility] [id number] Common 12:00:59 [facility] 22801 [facility] 2021-04-22 Outpatient Ferreira, STLMLC [facility] [id number] Common 11:49:59 [facility] 71762 [facility] 2021-11-27 2021-11-27 Telephone Heladio, [facility] [id number] 00:[facility] 00[facility]00[facility]00 [facility] 2021-11-24 2021-11-24 Outpatient R ADUM, [facility] [id number] Univers 08:00:00 08:00:00 HEMA [id number] [facility] 2021-11-24 2021-11-24 Outpatient R ADUM, [facility] [id number] Univers 08:00:00 08:00:00 HEMA [facility] 2021-11-24 2021-11-24 Telephone Jackie, [facility] [id number] 00:[facility] 00:00[facility]00 [facility] 2021-11-19 2021-11-19 Telephone Heladio, [facility] [id number] 00:00[facility]00 00:00:00 [facility] 2021-10-29 2021-10-29 Telephone Heladio, [facility] [id number] 00:00[facility]00 00:00:00 [facility] 2021-09-29 2021-09-29 Outpatient [facility] [id number] 15:32:40 15:32:40 [facility] 2021-09-04 2021-09-04 Telephone Jaci, [facility] [id number] 00:00:00 00:00:00 [facility] 2021-09-01 2021-09-01 Outpatient [facility] [id number] 12:57:46 13:16:58 [facility] 2021-08-06 2021-08-[address] [facility] [id number] 00:00:00 00:00:00 [facility] 2021-08-04 2021-08-04 Outpatient [facility] [id number] 11:28:15 12:46:10 [facility] 2021-07-30 2021-07-30 Outpatient [facility] [id number] 13:44:34 13:45:32 [facility] 2021-07-09 2021-07-09 [id number] 00:00:00 00:00:00 [facility] 2021-07-09 2021-07-[address] [facility] [id number] 00:00:00 00:00:00 [facility] 2021-06-30 2021-06-30 Outpatient [facility] [id number] 12:00:04 12:04:24 [facility] 2021-05-27 2021-05-27 Outpatient [facility] [id number] 12:37:54 13:23:49 [facility] 2021-05-25 2021-05-[address] [facility] [id number] 00:00:00 00:00:00 [facility] 2021-04-29 2021-04-29 Outpatient [facility] [id number] 09:38:04 09:38:14 [facility] 2021-04-22 2021-04-[address] [facility] [id number] 10:00:00 11:33:37 Visit [facility] 2021-04-22 2021-04-[address] [facility] [id number] CHI 09:46:36 11:33:37 Visit Gurjit [facility] 2020-11-09 2020-11-09 Laboratory Lab, [facility] Fam Pob I [facility] 1.2. [id number] Univers 18:20:07 18:40:07 Only Unknown, Attending Health [id number] ity of [place] [id number] Joe as Professio [phone] Or dical nal 044 [facility] 2020-11-09 2020-11-09 Outpatient R [facility] [id number] Univers 18:00:00 18:00:00 [id number] ity [facility] 2020-11-09 2020-11-09 Outpatient R UNKNOWN, [facility] [id number] Univers 18:00:00 18:00:00 ATTENDING ity [facility] 2020-11-05 2020-11-05 Laboratory Lab, [facility] Fam [facility] 1.2. [id number] [id number] Univers 10:02:18 10:22:18 [facility] [id number] ity of [place] [id number] Joe as Professio [phone] Or dical nal 044 [facility] 2020-11-05 2020-11-05 Outpatient R [facility] [id number] Univers 10:00:00 10:00:00 [id number] ity [facility] 2020-11-05 2020-11-05 [facility] [id number] Univers 10:00:00 10:00:00 OLGA roel o f [facility] 2020-11-03 2020-11-03 Outpatient [facility] [id number] Univers 10:00:00 10:00:00 [id number] [facility] 2020-11-03 2020-11-03 [facility] [id number] Univers 10:00:00 10:00:00 MONET ity [facility] 2020-04-28 2020-04-28 Letter SAMUEL Nur [id number] 00:00:00 00:00:00 (Out) Dari T PATRICIA [id number] HOSPITAL [id number] 2020-04-28 2020-04-28 Daniel SAMUEL Nur [id number] Univers 00:00:00 00:00:00 (Out) Dari Mayen PATRICIA [id number] it y of HOSPITAL [id number] Joe as [phone] [facility] 019 Branch 2020-04-24 2020-04-24 Laboratory Only, [facility] [id number] 11:31:33 11:46:33 Only Test Curry [id number] [place] [id number] [place] [id number] 2020-04-24 2020-04-24 Laboratory Only, [facility] Test [facility] 1.2.840. [id number] [facility] 11:31:33 11:46:33 Only Baylee Johnson [id number] ity of [place] [id number] [facility] [id number] [facility] 353 Branch 2020-04-24 2020-04-24 Outpatient R ALEX [facility] [id number] [facility] 11:30:00 11:30:00 BAYLEE lópez of [facility] 2020-04-24 2020-04-24 Orders Doctor SAMUEL 1.2.840.114 [id number] 00:00:00 00:00:00 Only Unassigned, PATRICIA [id number] [facility] [id number] [id number] 2020-04-24 2020-04-24 Orders Doctor SAMUEL 1.2.840.114 [id number] Univers 00:00:00 00:00:00 Only Unassigned, PATRICIA [id number] ity of B [facility] E [facility]OSPITAL [id number] Joe as [phone] [address] Results This patient has no known results.
[2021-12-27 15:39] LABS: Urine Blood 3+ (Negative); Urine Glucose Negative (Negative); Urine Protein Negative (Negative); Urine Specific Gravity >=1.030 (1.005-1.030)
[2021-12-27 16:39] LABS: Absolute Lymphocytes (CBC) 1.6 K/uL (0.7-4.9); Hematocrit 34.5 % (36.0-45.0); Lymphocytes % 26.2 % (15.3-44.8); MPV 8.7 fL (7.6-11.3); RBC Red Blood Cell Count 5.07 M/uL (3.86-4.86)
[2021-12-27 17:01] LABS: Albumin 3.3 g/dL (3.4-5.0); Bilirubin Total 0.2 mg/dL (0.2-1.0); Potassium 4.3 mmol/L (3.5-5.1); Protein, Total 8.1 g/dL (6.4-8.2)
--- NOTE | 2021-12-27 17:21 | ER ---
Nurse's Notes [facility] Name: Nazanin Trammell Age: 31 yrs Sex: Female : 1990 Arrival Date: 12/27/2021 Time: 13:37 Bed 25 Private MD: Diagnosis: Abnormal uterine and vaginal bleeding, unspecified Presentation: 12/27 15:14 Chief complaint: Patient states: LMP December 16; began to bleed again 12-24; stated vg1 "heavy bleeding with golf size clots" Stated saturating a pad every hour. Denies ABD pain. Coronavirus screen: Vaccine status: Patient reports receiving the 2nd dose of the covid vaccine. Client denies travel out of the [place] in the last 14 days. Ebola Screen: Patient denies exposure to infectious person. Patient denies travel to an Ebola-affected area in the 21 days before illness onset. Initial Sepsis Screen: Does the patient meet any 2 criteria? No. Patient's initial sepsis screen is negative. Does the patient have a suspected source of infection? No. Patient's initial sepsis screen is negative. Risk Assessment: Do you want to hurt yourself or someone else? Patient reports no desire to harm self or others. Onset of symptoms was December 24, 2021. 15:14 Method Of Arrival: Ambulatory vg1 15:14 Acuity: ELKIN 3 vg1 Triage Assessment: 15:16 General: Appears uncomfortable, Behavior is calm, cooperative. Pain: Denies pain. : vg1 Reports vaginal bleeding that is bright red, with clots, heavy flow. 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 - Social history:: Smoking status: Patient denies any tobacco usage or history of. Screenin:15 Abuse screen: Denies threats or abuse. Nutritional screening: No deficits noted. bm7 Tuberculosis screening: No symptoms or risk factors identified. Fall Risk None identified. Assessment: 16:15 Reassessment: No changes from previously documented assessment. Patient and/or family bm7 updated on plan of care and expected duration. Pain level reassessed. Patient is alert, oriented x 3, equal unlabored respirations, skin warm/dry/pink. 16:35 General: Appears in no apparent distress. comfortable, Behavior is calm, cooperative, bm7 appropriate for age. Pain: Complains of pain in suprapubic area. Neuro: No deficits noted. Cardiovascular: No deficits noted. Respiratory: No deficits noted. GI: No deficits noted. No signs and/or symptoms were reported involving the gastrointestinal system. : Urine is clear, Reports vaginal bleeding that is bright red, with clots, heavy flow. EENT: No deficits noted. No signs and/or symptoms were reported regarding the EENT system. Derm: No deficits noted. No signs and/or symptoms reported regarding the dermatologic system. Musculoskeletal: No deficits noted. No signs and/or symptoms reported regarding the musculoskeletal system. Vital Signs: 15:14 BP 127 / 82; Pulse 64; Resp 16; Temp 97.7; Pulse Ox 100% ; Weight 122.47 kg; Height 5 vg1 ft. 2 in. (157.48 cm); Pain 0/10; 16:35 BP 136 / 78; Pulse 76; Resp 16; Pulse Ox 100% on R/A; bm7 15:14 Body Mass Index 49.38 (122.47 kg, 157.48 cm) vg1 ED Course: 13:37 Patient arrived in ED. am2 14:03 Agapito Hemphill PA is PHCP. [facility] 14:03 Hector Loya MD is Attending Physician. [facility] 15:16 Triage completed. vg1 15:16 Arm band placed on. vg1 15:30 Olga Ramires, RN is Primary Nurse. bm7 15:43 No apparent distress. Resting quietly. Awaiting lab results. bm7 15:43 Patient has correct armband on for positive identification. Placed in gown. Bed in low bm7 position. Call light in reach. Side rails up X 1. Client placed on continuous cardiac and pulse oximetry monitoring. NIBP monitoring applied. Warm blanket given. Assisted to bathroom. 15:43 Urine collected: clean catch specimen, clear. Patient maintains SpO2 saturation greater bm7 than 95% on room air. 16:15 Initial lab(s) drawn, by laboratory supervisor, sent to lab. bm7 17:47 Assist provider with pelvic exam: Set up pelvic tray. Performed by Agapito CUMMINGS bm7 Patient tolerated well. Patient did not have IV access during this emergency room visit. Administered Medications: No medications were administered Medication: 16:15 VIS not applicable for this client. bm7 Outcome: 17:20 Discharge ordered by MD. hudson 17:47 Discharged to home bm7 17:47 Condition: good 17:47 Discharge instructions given to patient, Instructed on discharge instructions, follow up and referral plans. Demonstrated understanding of instructions, follow-up care. 17:47 Patient left the ED. bm7 Signatures: Agapito Hemphill PA PA jmm Moreno, Amanda am2 Alena Lara, RN RN vg1 Olga Ramires, RN RN bm7
--- NOTE | 2021-12-27 17:21 | EDPHYS ---
Physician Documentation [facility] Name: Nazanin Trammell Age: 31 yrs Sex: Female : 1990 Arrival Date: 12/27/2021 Time: 13:37 Bed 25 Private MD: JANETH Physician Hector Loya HPI: 12/27 15:31 This 31 yrs old Female presents to ER via Ambulatory with complaints of jmm Vaginal Bleeding. 15:31 The patient presents with vaginal bleeding that is. Onset: The symptoms/episode jmm began/occurred gradually. Modifying factors: The symptoms are alleviated by nothing, the symptoms are aggravated by nothing. Associated signs and symptoms: Pertinent negatives: dysuria, fever. The patient has not experienced similar symptoms in the past. 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 - Social history:: Smoking status: Patient denies any tobacco usage or history of. ROS: 15:31 Constitutional: Negative for fever, chills, and weight loss, Cardiovascular: Negative jmm for chest pain, palpitations, and edema, Respiratory: Negative for shortness of breath, cough, wheezing, and pleuritic chest pain. 15:31 : Positive for urinary symptoms. 15:31 All other systems are negative. Exam: 15:31 Constitutional: This is a well developed, well nourished patient who is awake, alert, jmm and in no acute distress. Head/Face: atraumatic. Eyes: EOMI, no conjunctival erythema appreciated ENT: Moist Mucus Membranes Neck: Trachea midline, Supple Chest/axilla: Normal chest wall appearance and motion. Cardiovascular: Regular rate and rhythm. No edema appreciated Respiratory: Normal respirations, no respiratory distress appreciated Abdomen/GI: Non distended Back: Normal ROM 15:31 Skin: General appearance color normal MS/ Extremity: Moves all extremities, no obvious deformities appreciated, no edema noted to the lower extremities Neuro: Awake and alert Psych: Behavior is normal, Mood is normal, Patient is cooperative and pleasant 15:31 : Pelvic Exam: External exam: is normal, Speculum exam: mild bleeding, blood clots in vaginal vault. Vital Signs: 15:14 BP 127 / 82; Pulse 64; Resp 16; Temp 97.7; Pulse Ox 100% ; Weight 122.47 kg; Height 5 vg1 ft. 2 in. (157.48 cm); Pain 0/10; 16:35 BP 136 / 78; Pulse 76; Resp 16; Pulse Ox 100% on R/A; bm7 15:14 Body Mass Index 49.38 (122.47 kg, 157.48 cm) vg1 MDM: 15:31 Patient medically screened. ayanna 17:19 Data reviewed: vital signs, nurses notes. Counseling: I had a detailed discussion with becca the patient and/or guardian regarding: the historical points, exam findings, and any diagnostic results supporting the discharge/admit diagnosis, lab results, the need for outpatient follow up, to return to the emergency department if symptoms worsen or persist or if there are any questions or concerns that arise at home. 12/27 15:39 Order name: Urine Dipstick-Ancillary; Complete Time: 15:41 [facility]WA 12/27 15:42 Order name: CBC with Diff [facility] 12/27 15:42 Order name: CMP [facility] 12/27 15:42 Order name: Lipase [facility] 12/27 15:42 Order name: Type And Screen [facility] 12/27 16:55 Order name: CBC with Automated Diff; Complete Time: 16:58 [facility] 12/27 15:42 Order name: IV Saline Lock; Complete Time: 15:42 [facility] 12/27 15:42 Order name: Labs collected and sent; Complete Time: 15:42 [facility] 12/27 17:02 Order name: Comprehensive Metabolic Panel; Complete Time: 17:19 [facility]WA 12/27 17:02 Order name: Lipase; Complete Time: 17:19 [facility] 12/27 17:44 Order name: Type and Screen; Complete Time: 17:45 EDWA Administered Medications: No medications were administered Disposition Summary: 12/27/21 17:20 Discharge Ordered Location: Home [facility] Condition: Stable [facility] Diagnosis - Abnormal uterine and vaginal bleeding, unspecified [facility] Followup: [facility] - With: Private Physician - When: 2 - 3 days - Reason: Recheck today's complaints, Continuance of care, Re-evaluation by your physician Discharge Instructions: - Discharge Summary Sheet jmm - Abnormal Uterine Bleeding jmm Forms: - Medication Reconciliation Form becca - Thank You Letter becca - Antibiotic Education becca - Prescription Opioid Use lily Signatures: Dispatcher [employer] Hector Ordaz MD MD cha Mickail, Joel, PA PA jmm Garcia, Victoria, RN RN vg1
[2021-12-27 18:29] VITALS: TEMP 97.7; O2SAT 100
[2021-12-27 18:31] VITALS: BP 136/78
== END 2021-12-27 17:47 | disposition home or self-care (01) ==
LOC: ER 13:37
DX: N93.9 Abnormal uterine and vaginal bleeding, unspecified (principal); K21.9 Gastro-esophageal reflux disease without esophagitis
CPT/HCPCS: 36415; 80053; 81003; 83690; 85025; 86850; 86900; 86901; 99284

== ENCOUNTER 2022-02-09 18:01 | Emergency (ER) | payer OTHER ==
--- OUTSIDE RECORDS SUMMARY | 2022-02-09 18:05 | XMS REPORT | Continuity of Care Document ---
:1990 Author Organization [facility] t Address [address] [place] [address] Care Team Providers Name Role Phone Jhon DO Pipe Rahul Primary Care Physician [phone] FerreiraPipe cherry M Attending Clinician Unavailable ANDREW BYRNE Attending Clinician Unavailable Andrew Byrne MD Attending Clinician Doctor Unassigned, [place] Attending Clinician Unavailable Fiona Leija MA Attending Clinician Unavailable HEMA CUBA Attending Clinician Unavailable Danika Mejia MA Attending Clinician Unavailable Gurjit Beatty MD Attending Clinician [phone] Lab, Adc Fam Pob I Attending Clinician Unavailable Unknown, Attending Attending Clinician Unavailable UNKNOWN, ATTENDING Attending Clinician Unavailable Olga Giron Attending Clinician OLGA CALERO Attending Clinician Unavailable MONET LUA Attending Clinician Unavailable Dari Nur RN Attending Clinician Unavailable Only, Adc Test Attending Clinician Unavailable Baylee Johnson MD Attending Clinician BAYLEE JOHNSON Attending Clinician Unavailable Payers Payer Name Policy Type Policy Number Effective Date Expiration Date S ource Problems Condition Condition Condition Status Onset Resolution Last Treating Co mments Source Name Details Category Date Date Treatment Clinician Date Pruritic Pruritic Disease Active 2014-03 Unive rs rash rash 2-18 ity of 00:00: [place] 00 [facility] Pain Pain Disease Active 2014-03 Univers pelvic pelvic 05-05 ity of 00:00: [place] 00 [facility] Multiparit Multiparit Disease Active 2014-03 U nivers y y 04-25 ity of 00:00: [place] 00 [facility] Asthma Asthma Disease Active 2014-03 Univers 04-25 ity of 00:00: [place] 00 [facility] High-risk High-risk Disease Active 2014-03 Uni vers 04-25 ity of 00:00: [place] 00 [facility] Previous Previous Disease Active Overview: Un [...] of ng ng 00:00: g of this [place] , , 00 note Me dical childbirth childbirth might be Branch , or , or different puerperium puerperium from the , , original. 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 [place] NO KNOWN Allergy Active [facility] Social History Social Habit Start Date Stop Date Quantity Comments Source History of Passive smoker University of tobacco use [facility] [place] Exposure to 2022-01-12 2022-01-22 Not sure University SARS-CoV-2 00:00:00 11:38:00 [facility] (event) Branch Alcohol intake 2022-01-22 2022-01-22 Ex-drinker [facility] 00:00:00 00:00:00 (finding) [facility] [place] Tobacco use and 2021-04-22 2021-04-22 Never used JANN Lucas exposure 00:00:00 [facility]:00 [facility] Sex Assigned At [birth year] JANN Lucas 00:00:00 00:00:00 [facility] Smoking Status Start Date Stop Date Source Never smoker [facility] Medications Ordered Filled Start Stop Current Ordering Indication Dosage Frequency Signature Comments Components Source Medication Medication Date Date Medication? Clinician (SIG) Name Name miSOPROStoL 2021-03 Yes [id number] 200ug Take 1 Univers 200 mcg 0-28 tablet by ity of tablet 00:00: mouth [place] [facility] CTIONS. Branch Take one tab the night before and one tab the morning of procedure miSOPROStoL 2021-03 Yes [id number] 200ug Take 1 Univers 200 mcg 0-28 tablet by ity of tablet 00:00: mouth [place] [facility] CTIONS. Branch Take one tab the night before and one tab the morning of procedure miSOPROStoL 2021-03 Yes [id number] 200ug Take 1 Univers 200 mcg 0-28 tablet by ity of tablet 00:00: mouth [place] [facility] CTIONS. Branch Take one tab the night before and one tab the morning of procedure miSOPROStoL 2021-03 Yes [id number] 200ug Take 1 Univers 200 mcg 0-28 tablet by ity of tablet 00:00: mouth [place] [facility] CTIONS. Branch Take one tab the night before and one tab the morning of procedure omeprazole 0 Yes Univers 40 mg 9-15 ity of capsule 00:00: [place] [facility] omeprazole Yes Univers 40 mg 9-15 ity of capsule 00:00: [place] [facility] omeprazole 0 Yes Univers 40 mg 9-15 ity of capsule 00:00: [address] omeprazole 2021-0 Yes Univers 40 mg 9-15 ity of capsule 00:00: [place] [facility] omeprazole Yes Univers 40 mg 9-15 ity of capsule 00:00: [address] omeprazole Yes 40mg QD Take [address] (PriLOSEC) - by mouth [facility] 40 MG 10:06: daily. Medical capsule [address] [place] [address] albuterol Yes 1{puff} Inhale 1 C HI [...] 3.5-10,000- 1 mg/mL-unit/ mL-% otic susp neomycin-po 2021- No 4[drp] Place 4 Univers lymyxin-hyd 8-23 10-28 Drops in ity of rocortisone 00:00: 00:00 right ear [place] (CORTISPORI 00 :00 4 (four) Medi aicha N OTIC times Branch SUSPENSION) daily. 3.5-10,000- 1 mg/mL-unit/ mL-% otic susp neomycin-po 2015-2021- No 4[drp] Place 4 Univers lymyxin-hyd 8-23 10-28 Drops in ity of rocortisone 00:00: 00:00 right ear [place] (CORTISPORI 00 :00 4 (four) Medi aicha N OTIC times Branch SUSPENSION) daily. 3.5-10,000- 1 mg/mL-unit/ mL-% otic susp Immunizations Ordered Filled Immunization Date Status Comments [facility] e Immunization Name Name Td 2012-08-02 Completed University of 00:00:[address] [facility] [place] Td 2012-08-02 Completed University of 00:00:[address] [facility] [place] Td 2012-08-02 Completed University of 00:00:[address] [facility] [place] Td 2012-08-02 Completed University of 00:00:[address] [facility] [place] Td 2012-08-02 Completed University of 00:00:[address] [facility] [place] Td 2012-08-02 Completed University of 00:00:[address] [facility] [place] Td 2012-08-02 Completed University of 00:00:[address] [facility] [place] Td 2012-08-02 Completed University 00:00:[address] [facility] [place] Td 2012-08-02 Completed University 00:00:[address] [facility] [place] Td 2012-08-02 Completed [facility] 00:00:[address] [facility] [place] Vital Signs Vital Name Observation Time Observation Value Comments Source Systolic blood 2022-01-22 18:47:00 125 mm[Hg] Univer sity of pressure [facility] [place] Diastolic blood 2022-01-22 18:47:00 76 mm[Hg] Unive rsity [facility] Heart rate 2022-01-22 18:47:00 84 /min [facility] Body temperature 2022-01-22 18:47:00 36.67 [facility] Body height 2022-01-22 18:47:00 157.5 cm [facility] Body weight 2022-01-22 18:47:00 134.764 kg [facility] BMI 2022-01-22 18:47:00 54.34 kg/m2 [facility] HEIGHT 2021-04-22 10:05:00 157.5 cm WEIGHT 2021-04-22 10:05:00 129.094 kg HEIGHT 2021-04-22 10:05:00 157.5 cm WEIGHT 2021-04-22 10:05:00 129.094 kg Systolic blood 2021-04-22 10:05:00 107 mm[Hg] [facility] Diastolic blood 2021-04-22 10:05:00 60 mm[Hg] [facility] S t [facility] Heart rate 2021-04-22 10:05:00 72 /min [facility] Body temperature 2021-04-22 10:05:00 36.17 Sue [facility] Body height 2021-04-22 10:05:00 157.5 cm [facility] Body weight 2021-04-22 10:05:00 129.094 kg [facility] BMI 2021-04-22 10:05:00 52.05 kg/m2 [facility] Procedures Procedure Date / Time Performed Performing Clinician Sour e EXTERNAL PROVIDER 2022-01-29 05:01:00 [facility] POCT TEST 2022-01-22 00:00:00 Andrew Byrne [facility] CONSENT/REFUSAL FOR 2020-04-24 17:29:33 Doctor Unassigned, No [facility] DIAGNOSIS AND Name [facility] Branch TREATMENT ASSIGNMENT OF BENEFITS 2020-04-24 17:29:19 Doctor Unassigned, No [facility] Plan of Care Planned Activity Planned Date Details Comments Source Future Scheduled 2021-11-[address] [facility] Test 00:00:00 (#1) [code = Medical Center INFLUENZA VACCINE (#1)] Future Scheduled 2021-11-[address] [...] Medica l Center cervix (procedure) [code = 944195480] Future Scheduled [address] [facility] Test 00:00:00 malignant neoplasm of [facility]ica [facility] Center cervix (procedure) [code = 820365242] Future Scheduled [address] [facility] Test 00:00:00 malignant neoplasm of [facility]ica [facility] Center cervix (procedure) [code = 807886042] Future Scheduled [address] [facility] Test 00:00:00 (procedure) [code = [facility] 01484768] Future Scheduled [address] [facility] Test 00:00:00 (procedure) [code = [facility] 44114565] Future Scheduled [address] [facility] Test 00:00:00 (procedure) [code = Medical Center 41825457] Future Scheduled 2011 DTAP/TDAP/TD VACCINES CH I [...] = COVID-[address] VACCINE (#1)] Future Scheduled 1992 COVID-19 VACCINE (#1) [facility] 00:00:00 [code = COVID-[address] VACCINE (#1)] Encounters Start End Encounter Admission Attending Care Care Encounter Source Date/Time Date/Time Type Type Clinicians Facility Department ID 2021-12-16 Outpatient Ferreira [facility] [id number] Common 13:29:00 [facility] 2021-12-02 Outpatient Ferreira, [facility] [id number] Common 14:34:00 [facility] 2021-04-22 Outpatient Ferreira, [facility]LML[facility] [id number] Common 14:02:17 Pipe [id number] [facility] 2021-04-22 Outpatient Ferreira, STLMLC [facility] [id number] Common 13:50:56 Pipe [id number] [facility] 2021-04-22 Outpatient Ferreira, STLMLC [facility] [id number] Common 12:48:57 Pipe [id number] [facility] 2021-04-22 Outpatient Ferreira, STLMLC [facility] [id number] Common 12:30:16 Pipe [id number] [facility] 2021-04-22 Outpatient Ferreira, STLMLC [facility] [id number] Common 12:28:29 Pipe [id number] [facility] 2021-04-22 Outpatient Ferreira, STLMLC [facility] [id number] Common 12:27:57 Pipe [id number] [facility] 2021-04-22 Outpatient Ferreira, STLMLC [facility] [id number] Common 12:27:09 Pipe [id number] [facility] 2021-04-22 Outpatient Ferreira, STLMLC [facility] [id number] Common 12:08:05 Pipe [id number] [facility] 2021-04-22 Outpatient Ferreira, STLMLC [facility] [id number] Common 12:07:40 Pipe [id number] [facility] 2021-04-22 Outpatient Ferreira, STLMLC [facility] [id number] Common 12:00:59 Pipe [id number] [facility] 2021-04-22 Outpatient Ferreira, STLMLC [facility] [id number] Common 11:49:59 Pipe [id number] [facility] 2022-02-03 2022-02-03 Telephone Andrew Byrne [facility] [id number] Univers 00:00:00 00:00:00 Naif DE SANTIAGO [id number] i [id number] PROF[place] [phone] [place] dical [address] 2022-01-29 2022-01-29 Orders Doctor SAMUEL [id number] Univers 00:00:00 00:00:00 Only Unassigned, PATRICIA [id number] ity of [place] [facility] [id number] Joe as [phone] [address] 2022-01-22 2022-01-22 Outpatient R ANDREW BYRNE [facility] [id number] Univers 14:00:00 14:18:56 ity [facility] 2022-01-22 2022-01-22 Office Gerber Andrew [facility] [place] [id number] Univers 14:00:00 14:18:56 Visit Naif RUBIO [id number] it y of [id number] [phone] [address] 2022-01-22 2022-01-22 Letter Andrew Byrne [facility] [place] [id number] Univers 00:00:00 00:00:00 (Out) Naif RUBIO [id number] it [id number] [id number] [address] 2021-11-27 2021-11-27 Telephone Heladio [facility] [id number] 00:00[facility]00 00:00:00 [facility] 2021-11-27 2021-11-27 Telephone Heladio [facility] [id number] 00:00[facility] 00:00:00 [facility] 2021-11-24 2021-11-24 Outpatient R ROSA ELENA [facility] [id number] Univers 08:00:00 08:00:00 HEMA itroel [facility] 2021-11-24 2021-11-24 Telephone Jackie [facility] [id number] 00:00[facility]00 00:00:00 [facility] 2021-11-24 2021-11-24 Telephone Jackie, [facility] [id number] 00:00[facility]00 00:00:00 [facility] 2021-11-19 2021-11-19 Telephone Heladio, [facility] [id number] 00:00[facility]00 00:00:00 [facility] 2021-11-19 2021-11-19 Telephone Heladio, [facility] [id number] 00:00[facility]00 00:00:00 [facility] 2021-10-29 2021-10-29 Telephone Heladio, [facility] [id number] 00:00[facility]00 00:00:00 [facility] 2021-10-29 2021-10-29 Telephone Heladio, [facility] [id number] 00:00[facility]00 00:00:00 [facility] 2021-09-29 2021-09-29 Outpatient EL [facility] [id number] 15:32:40 15:32:40 [facility] 2021-09-04 2021-09-04 [id number] 00:00[facility]00 00:00:00 [facility] 2021-09-04 2021-09-04 Telephone Jaci, [facility] [id number] 00:00:00 00:00:00 [facility] 2021-09-01 2021-09-01 Outpatient EL [facility] [id number] 12:57:46 13:16:58 [facility] 2021-08-06 2021-08-06 [facility] [id number] 00:00:00 00:00:00 [facility] 2021-08-06 2021-08-06 [facility] [id number] 00:00:00 00:00:00 [facility] 2021-08-04 2021-08-04 Outpatient EL [facility] [id number] 11:28:15 12:46:10 [facility] 2021-07-30 2021-07-30 Outpatient EL [facility] [id number] 13:44:34 13:45:32 [facility] 2021-07-09 2021-07-09 [facility] [id number] 00:00:00 00:00:00 [facility] 2021-07-09 2021-07-09 [facility] [id number] 00:00:00 00:00:00 [facility] 2021-07-09 2021-07-09 [facility] [id number] 00:00:00 00:00:00 [facility] 2021-07-09 2021-07-09 [facility] [id number] 00:00:00 00:00:00 [facility] 2021-06-30 2021-06-30 Outpatient [facility] [id number] 12:00:04 12:04:24 [facility] 2021-05-27 2021-05-27 Outpatient [facility] [id number] 12:37:54 13:23:49 [facility] 2021-05-25 2021-05-25 [facility] [id number] 00:00:00 00:00:00 [facility] 2021-05-25 2021-05-25 [facility] [id number] 00:00:00 00:00:00 [facility] 2021-04-29 2021-04-29 Outpatient [facility] [id number] 09:38:04 09:38:14 [facility] 2021-04-22 2021-04-22 Office Jaci [facility] [id number] 10:00:00 11:33:37 Visit [facility] 2021-04-22 2021-04-22 Office Jaci [facility] [id number] 10:00:00 11:33:37 Visit [facility] 2020-11-09 2020-11-09 Laboratory Lab, [facility] 1.2. [id number] Univers 18:20:07 18:40:07 Only Unknown, [facility] [id number] ity of [place] [id number] Joe as Professio [phone] [address] Office [facility] 2020-11-09 2020-11-09 Outpatient R UNKNOWN, [facility] [id number] Univers 18:00:00 18:00:00 ATTENDING [facility] 2020-11-05 2020-11-05 Laboratory Lab, [facility] 1.2. [id number] [id number] Univers 10:02:18 10:22:18 Only Abdias, [facility] [id number] ity of [place] 4.2.7.2.686 Joe as Professio [phone] [address] One 2020-11-05 2020-11-05 Outpatient R ABDIAS [facility] [id number] Univers 10:00:00 10:00:00 OLGA lópez o f [facility] [place] 2020-11-03 2020-11-03 Outpatient R STONEY, [facility] [id number] Univers 10:00:00 10:00:00 [facility] 2020-04-28 2020-04-28 Letter SAMUEL Nur 1.2.840.114 [id number] Univers 00:00:00 00:00:00 (Out) Dari GOMEZ 350.1.13.10 it y of [facility] [id number] [place] as [id number] [address] 2020-04-28 2020-04-28 Letter SAMUEL Nur 1.2.840.114 [id number] 00:00:00 00:00:00 (Out) Dariricha GOMEZ 350.1.13.10 [facility] [id number] [id number] 2020-04-24 2020-04-24 Laboratory Only, [facility] Test [facility] 1.2.840. 114 [id number] [facility] 11:31:33 11:46:33 Only Baylee Johnson 350.1.13.10 it[place] of [place]2.7.2.686 [place] [id number] [facility] [address] 2020-04-24 2020-04-24 Laboratory Only, [facility] 1.2.840.114 [id number] 11:31:33 11:46:33 Only Test Curry 350.1.13.10 [place] 4.2.7.2.686 [place] [id number] 2020-04-24 2020-04-24 Outpatient Vesna JOHNSON, [facility] [id number] [facility] 11:30:00 11:30:00 BAYLEE lópez [facility] 2020-04-24 2020-04-24 Orders Doctor SAMUEL Madrigal2.840.114 [id number] Univers 00:00:00 00:00:00 Only UnassignedPATRICIA 350.1.13.10 ity of [place] [facility] [id number] Joe as [id number] [facility] [address] 2020-04-24 2020-04-24 Orders Doctor SAMUEL Anderson.2.840.114 [id number] 00:00:00 00:00:00 Only UnassignedPATRICIA 350.1.13.10 [place] [facility] [id number] [id number] Results Test Description Test Time Test Comments Results Result Comments Source POCT TEST 2022-01-22 18:56:00 Test Item Value Reference Range Interpretation Comme nts POCT PREG (test code = 1605) Negative On board controls acceptable with C Line (test code = 3574) Yes POCT PREG LOT # (test code = 3575) POCT PREG TEST DATE (test code = 3576) [id number] 18:56:00 Test Item Value Reference Range Interpretation Comments POCT PREG (test code = 1605) Negative On board controls acceptable with C Yes Line (test code = 3574) POCT PREG LOT # (test code = 3575) POCT PREG TEST DATE (test code = 3576) [facility]
--- NOTE | 2022-02-09 18:24 | ER ---
Nurse's Notes [facility] Name: Nazanin Trammell Age: 31 yrs Sex: Female : 1990 Arrival Date: 02/09/2022 Time: 18:03 Bed DIS3 Private MD: Diagnosis: Influenza due to unidentified influenza virus with other respiratory manifestations Presentation: 02/09 18:19 Chief complaint: Patient states: step daughter tested positive for flu yesterday, today iw she has sore throat, ear pain, chills, body aches. Coronavirus screen: Client presents with at least one sign or symptom that may indicate coronavirus-19. Ebola Screen: Patient negative for fever greater than or equal to 101.5 degrees Fahrenheit, and additional compatible Ebola Virus Disease symptoms Patient denies exposure to infectious person. Patient denies travel to an Ebola-affected area in the 21 days before illness onset. No symptoms or risks identified at this time. Initial Sepsis Screen: Does the patient meet any 2 criteria? No. Patient's initial sepsis screen is negative. Does the patient have a suspected source of infection? No. Patient's initial sepsis screen is negative. Risk Assessment: Do you want to hurt yourself or someone else? Patient reports no desire to harm self or others. Onset of symptoms was February 09, 2022. 18:19 Method Of Arrival: Ambulatory iw 18:19 Acuity: ELKIN 4 iw Historical: - Allergies: 18:22 No Known Allergies; iw - Home Meds: 18:22 Omeprazole Oral [Active]; iw - PMHx: 18:22 GERD; iw - PSHx: 18:22 section; iw Vital Signs: 18:19 BP 117 / 72; Pulse 100; Resp 16; Temp 98.3; Pulse Ox 97% on R/A; iw ED Course: 18:03 Patient arrived in ED. as 18:05 [facility] 18:05 Flakito Locke MD is Attending Physician. snw 18:21 Triage completed. iw 18:22 Arm band placed on. iw 18:23 Dang Navarro, RN is Primary Nurse. iw Administered Medications: 18:28 Drug: Decadron (dexamethasone) 10 mg {Note: given PO.} Route: IM; Site: Other; iw 18:28 Drug: Flexeril (cyclobenzaprine) 10 mg Route: PO; iw Outcome: 18:24 Discharge ordered by . adam 18:34 Patient left the ED. iw Signatures: Swathi Harvey FNP-C FNP-April Montero Irene, RN RN iw
--- NOTE | 2022-02-09 18:24 | EDPHYS ---
Physician Documentation [facility] – [place], [place] Name: Nazanin Trammell Age: 31 yrs Sex: Female : 1990 Arrival Date: 02/09/2022 Time: 18:03 Bed DIS3 Private MD: ED Physician Flakito Locke HPI: 02/09 18:29 This 31 yrs old Female presents to ER via Ambulatory with complaints of Flu snw Symptoms. 18:29 Onset: The symptoms/episode began/occurred suddenly, today. Associated signs and snw symptoms: Pertinent positives: congestion, cough, fever. Modifying factors: The patient symptoms are alleviated by nothing. The patient has not experienced similar symptoms in the past, but family has similar symptoms, Step Daughter with flu A. The patient has not recently seen a physician. pt declines swabs. Historical: - Allergies: 18:22 No Known Allergies; iw - Home Meds: 18:22 Omeprazole Oral [Active]; iw - PMHx: 18:22 GERD; iw - PSHx: 18:22 section; iw ROS: 18:29 Eyes: Negative for injury, pain, redness, and discharge, ENT: Negative for injury, snw pain, and discharge, Neck: Negative for injury, pain, and swelling, Cardiovascular: Negative for chest pain, palpitations, and edema. 18:29 Abdomen/GI: Negative for abdominal pain, nausea, vomiting, diarrhea, and constipation, Back: Negative for injury and pain, : Negative for injury, bleeding, discharge, and swelling, MS/Extremity: Negative for injury and deformity, Skin: Negative for injury, rash, and discoloration, Neuro: Negative for headache, weakness, numbness, tingling, and seizure. 18:29 Constitutional: Positive for body aches, fatigue, fever, malaise, poor PO intake. 18:29 Respiratory: Positive for cough, shortness of breath. Exam: 18:28 Head/Face: Normocephalic, atraumatic. Eyes: Pupils equal round and reactive to light, snw extra-ocular motions intact. Lids and lashes normal. Conjunctiva and sclera are non-icteric and not injected. Cornea within normal limits. Periorbital areas with no swelling, redness, or edema. ENT: Nares patent. No nasal discharge, no septal abnormalities noted. Tympanic membranes are normal and external auditory canals are clear. Oropharynx with no redness, swelling, or masses, exudates, or evidence of obstruction, uvula midline. Mucous membranes moist. Neck: Trachea midline, no thyromegaly or masses palpated, and no cervical lymphadenopathy. Supple, full range of motion without nuchal rigidity, or vertebral point tenderness. No Meningismus. Chest/axilla: Normal chest wall appearance and motion. Nontender with no deformity. No lesions are appreciated. 18:28 Abdomen/GI: Soft, non-tender, with normal bowel sounds. No distension or tympany. No guarding or rebound. No evidence of tenderness throughout. Back: No spinal tenderness. No costovertebral tenderness. Full range of motion. Skin: Warm, dry with normal turgor. Normal color with no rashes, no lesions, and no evidence of cellulitis. MS/ Extremity: Pulses equal, no cyanosis. Neurovascular intact. Full, normal range of motion. Neuro: Awake and alert, GCS 15, oriented to person, place, time, and situation. Cranial nerves II-XII grossly intact. Motor strength 5/5 in all extremities. Sensory grossly intact. Cerebellar exam normal. Normal gait. Psych: Awake, alert, with orientation to person, place and time. Behavior, mood, and affect are within normal limits. 18:28 Constitutional: The patient appears alert, awake, uncomfortable. 18:28 Cardiovascular: Rate: tachycardic, Rhythm: regular, Heart sounds: normal. 18:28 Respiratory: the patient does not display signs of respiratory distress, Respirations: shallow respirations, tachypnea, Breath sounds: bronchial sounds, that are moderate, are scattered, pt got refill of inhaler called in per PCP. Vital Signs: 18:19 BP 117 / 72; Pulse 100; Resp 16; Temp 98.3; Pulse Ox 97% on R/A; iw MDM: 18:17 Patient medically screened. snw 18:31 Data reviewed: vital signs, nurses notes. Data interpreted: Pulse oximetry: on room air snw is 97 %. Interpretation: normal. Counseling: I had a detailed discussion with the patient and/or guardian regarding: the historical points, exam findings, and any diagnostic results supporting the discharge/admit diagnosis, the need for outpatient follow up, to return to the emergency department if symptoms worsen or persist or if there are any questions or concerns that arise at home. Special discussion: Based on the history and exam findings, there is no indication for further emergent testing or inpatient evaluation. I discussed with the patient/guardian the need to see the primary care provider for further evaluation of the symptoms. Administered Medications: 18:28 Drug: Decadron (dexamethasone) 10 mg {Note: given PO.} Route: IM; Site: Other; iw 18:28 Drug: Flexeril (cyclobenzaprine) 10 mg Route: PO; iw Disposition: 18:40 Co-signature as Attending Physician, Flakito Locke MD. rn Disposition Summary: 02/09/22 18:24 Discharge Ordered Location: Home snw Condition: Stable snw Diagnosis - Influenza due to unidentified influenza virus with other respiratory manifestations snw Followup: snw - With: Emergency Department - When: As needed - Reason: Worsening of condition Followup: snw - With: Private Physician - When: 5 - 6 days - Reason: Recheck today's complaints, Continuance of care, Re-evaluation by your physician Discharge Instructions: - Discharge Summary Sheet snw - Fever, Adult snw - Influenza, Adult snw Forms: - Medication Reconciliation Form snw - Thank You Letter snw - Antibiotic Education snw - Prescription Opioid Use snw - Work release form snw Prescriptions: - Zyrtec 10 mg Oral Tablet - take 1 tablet by ORAL route once daily As needed; 20 tablet; Refills: 0, snw Product Selection Permitted - orphenadrine citrate 100 mg Oral Tablet Sustained Release - take 1 tablet by ORAL route 2 times per day As needed; 20 tablet; Refills: 0, snw Product Selection Permitted - Pepcid 20 mg Oral Tablet - take 1 tablet by ORAL route once daily; 20 tablet; Refills: 0, Product snw Selection Permitted Signatures: Swathi Harvey, [employer]IN[employer] Dang Navarro RN RN iw Flakito Locke MD MD rn
[2022-02-09] MEDS ORDERED: CYCLOBENZAPRINE 10 MG TAB ONE (18:26)
[2022-02-09] MEDS ORDERED: dexAMETHasone 10 MG/ML VIAL ONE (18:26)
[2022-02-09 18:38] VITALS: BP 117/72; TEMP 98.3; O2SAT 97
== END 2022-02-09 18:34 | disposition home or self-care (01) ==
LOC: ER 18:01
DX: J11.1 Influenza due to unidentified influenza virus with other respiratory manifestations (principal); Z20.822 Contact with and (suspected) exposure to COVID-19
CPT/HCPCS: 96372; 99282; J1100